=== PATIENT | female | born 1940 | race Caucasian/White ===

== ENCOUNTER 2017-09-13 15:29 | Outpatient (CLI) | payer OTHER ==
[~2017-09-13 15:29] MED LIST: AMLO5TAB4 PO; AMYL1CAP58 PO; ARA20 PO; CARB15DR76 OP; CEPH250C PO; FOLI-43 PO; GLU500 PO; L.RH1CAP PO; LEVO25TA58 PO; LEVO5TAB13 PO; METO-442 PO; MULT240L3 PO; OLME40TA13 PO; OMEP40CA33 PO; TRAM50TA92 PO; VITD2000 PO
[2017-09-13 18:17] LABS: BASOPHILS % (AUTO) 0.3 % (0.0-2.0); EOSINOPHILS # (AUTO) 0.2 K/uL (0.0-0.4); EOSINOPHILS % (AUTO) 2.6 % (0.0-4.0); HEMATOCRIT 27.9 % (36-48); HEMOGLOBIN 9.3 g/dL (12.0-16.0); MEAN CORPUSCULAR HEMOGLOBIN 31 pg (27-31); MEAN CORPUSCULAR HGB CONC 34 % (32-36); MEAN CORPUSCULAR VOLUME 92 fL (79.0-98.0); MONOCYTES # (AUTO) 1.1 K/uL (0.0-1.0); MONOCYTES % (AUTO) 17.2 % (1.7-9.3); NEUTROPHILS # (AUTO) 2.9 K/uL (1.8-7.7); NEUTROPHILS % (AUTO) 47.9 % (40.0-70.0); PLATELET COUNT (AUTO) 170 K/uL (130-430); RED BLOOD CELL COUNT(AUTO) 3.03 MIL/uL (4.2-6.2); RED CELL DISTRIBUTION WIDTH 15.9 % (9.0-15.0); WHITE BLOOD COUNT (AUTO) 6.2 K/uL (4.8-10.8)
[2017-09-13 18:50] LABS: ANION GAP 7 (5-15); CALCIUM 8.4 mg/dL (8.4-11.0); CHLORIDE 90 mmol/L (98-107); CREATININE 1.01 mg/dL (0.55-1.30); GLUCOSE 87 mg/dL (70-99); POTASSIUM 4.8 mmol/L (3.5-5.1); SODIUM SERUM 121 mmol/L (136-145); UREA NITROGEN, BLOOD 20 mg/dL (8-21)
[2017-09-13 18:57] LABS: BILIRUBIN,URINE NEGATIVE (NEGATIVE); BLOOD, URINE NEGATIVE (NEGATIVE); CLARITY/URINE CLEAR (CLEAR); COLOR,URINE YELLOW (YELLOW); GLUCOSE,URINE NEGATIVE (NEGATIVE); KETONES,URINE NEGATIVE (NEGATIVE); LEUKOCYTE ESTERASE ,URINE 1+ (NEGATIVE); NITRITE, URINE NEGATIVE (NEGATIVE); PH,URINE 6.5 (5.0-8.0); PROTEIN URINE NEGATIVE (NEGATIVE); UROBILINOGEN,URINE 0.2 (0.2-1.0)
[2017-09-13 19:06] LABS: ALANINE AMINOTRANSFERASE 28 U/L (12-78); ALBUMIN 2.8 g/dL (3.4-4.8); ASPARTATE AMINOTRANSFERASE 45 U/L (10-37); THYROID STIMULATING HORMONE 3.32 uIu/mL (0.34-4.82); TOTAL BILIRUBIN 0.7 mg/dL (0.0-1.0)
[2017-09-13 19:43] LABS: BACTERIA,URINE MODERATE /HPF (None Seen); RBC,URINE 0-3 /HPF (0-3)
[2017-09-13 19:44] LABS: MUCUS,URINE None Seen /LPF (None Seen)
== END 2017-09-13 20:51 | disposition home or self-care (01) ==
LOC: SLB 15:29
PROVIDERS: ATTEND Internal Medicine
DX: I11.0 Hypertensive heart disease with heart failure (principal); I50.9 Heart failure, unspecified; E11.9 Type 2 diabetes mellitus without complications; M06.9 Rheumatoid arthritis, unspecified; K21.9 Gastro-esophageal reflux disease without esophagitis; Z79.84 Long term (current) use of oral hypoglycemic drugs
CPT/HCPCS: 36415; 80053; 81000-TC; 83880; 84443-TC; 85025

== ENCOUNTER 2017-09-15 17:00 | Inpatient (IN) | payer OTHER ==
[~2017-09-15] VITALS: Ht 157.5 cm; Wt 80.8 kg
[2017-09-15 17:16] VITALS: BP_SYST 160
[2017-09-15 18:29] LABS: BASOPHILS % (AUTO) 0.5 % (0.0-2.0); EOSINOPHILS # (AUTO) 0.2 K/uL (0.0-0.4); EOSINOPHILS % (AUTO) 2.8 % (0.0-4.0); HEMOGLOBIN 9.5 g/dL (12.0-16.0); LYMPHOCYTES % (AUTO) 31.6 % (20.5-51.5); MEAN CORPUSCULAR HEMOGLOBIN 31 pg (27-31); MEAN CORPUSCULAR HGB CONC 34 % (32-36); MEAN CORPUSCULAR VOLUME 91 fL (79.0-98.0); MONOCYTES % (AUTO) 16.6 % (1.7-9.3); NEUTROPHILS # (AUTO) 3.1 K/uL (1.8-7.7); NEUTROPHILS % (AUTO) 48.5 % (40.0-70.0); PLATELET COUNT (AUTO) 176 K/uL (130-430); RED BLOOD CELL COUNT(AUTO) 3.07 MIL/uL (4.2-6.2); RED CELL DISTRIBUTION WIDTH 15.7 % (9.0-15.0); WHITE BLOOD COUNT (AUTO) 6.3 K/uL (4.8-10.8)
[2017-09-15 18:33] LABS: PROTHROMBIN TIME 10.3 SECS (9.5-12.5)
[2017-09-15 19:03] LABS: ANION GAP 10 (5-15); CALCIUM 8.5 mg/dL (8.4-11.0); CHLORIDE 89 mmol/L (98-107); CREATININE 1.18 mg/dL (0.55-1.30); GLUCOSE 102 mg/dL (70-99); POTASSIUM 4.2 mmol/L (3.5-5.1); SODIUM SERUM 122 mmol/L (136-145); UREA NITROGEN, BLOOD 22 mg/dL (8-21)
[2017-09-15 19:08] LABS: ALANINE AMINOTRANSFERASE 31 U/L (12-78); ASPARTATE AMINOTRANSFERASE 44 U/L (10-37); TOTAL BILIRUBIN 0.6 mg/dL (0.0-1.0)
[2017-09-15] MEDS ORDERED: INSU100V9 SUBCUT (19:55)
[2017-09-15] MEDS ORDERED: ASPI-1063 PO (19:55)
[2017-09-15] MEDS ORDERED: ESTA2TAB PO (19:55)
[2017-09-15] MEDS ORDERED: CORCR10 PO (19:55)
[2017-09-15] MEDS ORDERED: INSU100V8 SUBCUT (19:58)
[2017-09-15] MEDS ORDERED: DEXTROSE 50% JECT 50 ML DISP.SYRIN IVP PRN (20:30)
[2017-09-15] MEDS ORDERED: INSULIN REGULAR, HUMAN 100 UNITS/ML, 10 ML VIAL (novoLIN R) SUBCUT PRN (20:30)
[2017-09-15 20:40] VITALS: BP_SYST 158
[2017-09-15] MEDS: ENOXAPARIN SODIUM 40 MG/0.4 ML SYRINGE SUBCUT SCH (21:01)
[2017-09-15] MEDS: FUROSEMIDE 20 MG/2 ML VIAL IVP SCH (21:01)
[2017-09-15 22:38] LABS: BILIRUBIN,URINE NEGATIVE (NEGATIVE); BLOOD, URINE NEGATIVE (NEGATIVE); CLARITY/URINE CLEAR (CLEAR); COLOR,URINE YELLOW (YELLOW); GLUCOSE,URINE NEGATIVE (NEGATIVE); KETONES,URINE NEGATIVE (NEGATIVE); LEUKOCYTE ESTERASE ,URINE NEGATIVE (NEGATIVE); NITRITE, URINE NEGATIVE (NEGATIVE); PROTEIN URINE NEGATIVE (NEGATIVE); UROBILINOGEN,URINE 0.2 (0.2-1.0)
[2017-09-16 01:10] VITALS: BP_SYST 130; BP_SYST 144
[2017-09-16] MEDS: LEVOTHYROXINE SODIUM 0.025 MG TABLET PO SCH (06:10)
[2017-09-16 06:33] LABS: BASOPHILS % (AUTO) 0.3 % (0.0-2.0); EOSINOPHILS # (AUTO) 0.1 K/uL (0.0-0.4); EOSINOPHILS % (AUTO) 1.9 % (0.0-4.0); HEMATOCRIT 26.5 % (36-48); HEMOGLOBIN 9.1 g/dL (12.0-16.0); LYMPHOCYTES # (AUTO) 2.3 K/uL (1.0-5.5); LYMPHOCYTES % (AUTO) 33.9 % (20.5-51.5); MEAN CORPUSCULAR HEMOGLOBIN 31 pg (27-31); MEAN CORPUSCULAR HGB CONC 35 % (32-36); MEAN CORPUSCULAR VOLUME 91 fL (79.0-98.0); MONOCYTES % (AUTO) 14.7 % (1.7-9.3); NEUTROPHILS # (AUTO) 3.4 K/uL (1.8-7.7); NEUTROPHILS % (AUTO) 49.2 % (40.0-70.0); PLATELET COUNT (AUTO) 179 K/uL (130-430); RED BLOOD CELL COUNT(AUTO) 2.91 MIL/uL (4.2-6.2); RED CELL DISTRIBUTION WIDTH 15.9 % (9.0-15.0); WHITE BLOOD COUNT (AUTO) 6.8 K/uL (4.8-10.8)
[2017-09-16 07:18] LABS: ALANINE AMINOTRANSFERASE 28 U/L (12-78); ALBUMIN 2.7 g/dL (3.4-4.8); ANION GAP 8 (5-15); ASPARTATE AMINOTRANSFERASE 42 U/L (10-37); CALCIUM 8.7 mg/dL (8.4-11.0); CHLORIDE 95 mmol/L (98-107); FREE T4 (FREE THYROXINE) 0.6 ng/dL (0.6-1.6); GLUCOSE 79 mg/dL (70-99); POTASSIUM 4.1 mmol/L (3.5-5.1); SODIUM SERUM 129 mmol/L (136-145); THYROID STIMULATING HORMONE 3.99 uIu/mL (0.34-4.82); TOTAL BILIRUBIN 0.8 mg/dL (0.0-1.0); UREA NITROGEN, BLOOD 20 mg/dL (8-21)
[2017-09-16 07:21] LABS: TOTAL IRON BIND. CAPACITY 310 ug/dL (250-450)
[2017-09-16 08:00] VITALS: BP_SYST 143
[2017-09-16] MEDS: ASPIRIN 81 MG TABLET(ECOTRIN) PO SCH (09:40)
[2017-09-16] MEDS: CARVEDILOL 12.5 MG TABLET (COREG) PO SCH ×2 (09:40→18:11)
[2017-09-16] MEDS: FOLIC ACID 1 MG TABLET PO SCH (09:41)
[2017-09-16] MEDS: LIPASE/PROTEASE/AMYLASE 1 CAP PO SCH (09:41)
[2017-09-16] MEDS: FUROSEMIDE 20 MG/2 ML VIAL IVP SCH ×2 (09:42→21:25)
[2017-09-16 12:29] VITALS: BP_SYST 133
[2017-09-16 16:15] VITALS: BP_SYST 128
[2017-09-16 19:58] VITALS: BP_SYST 148
[2017-09-16] MEDS ORDERED: ZOLPIDEM TARTRATE 5 MG TABLET PO PRN (20:30)
[2017-09-16] MEDS: ENOXAPARIN SODIUM 40 MG/0.4 ML SYRINGE SUBCUT SCH (21:26)
[2017-09-17] MEDS: LEVOTHYROXINE SODIUM 0.025 MG TABLET PO SCH (06:39)
[2017-09-17 06:53] LABS: BASOPHILS # (AUTO) 0.1 K/uL (0.0-0.2); BASOPHILS % (AUTO) 1.2 % (0.0-2.0); EOSINOPHILS # (AUTO) 0.1 K/uL (0.0-0.4); EOSINOPHILS % (AUTO) 2.1 % (0.0-4.0); HEMATOCRIT 27.4 % (36-48); HEMOGLOBIN 9.7 g/dL (12.0-16.0); LYMPHOCYTES % (AUTO) 33.8 % (20.5-51.5); MEAN CORPUSCULAR HEMOGLOBIN 32 pg (27-31); MEAN CORPUSCULAR HGB CONC 35 % (32-36); MEAN CORPUSCULAR VOLUME 91 fL (79.0-98.0); MONOCYTES # (AUTO) 0.9 K/uL (0.0-1.0); MONOCYTES % (AUTO) 15.5 % (1.7-9.3); NEUTROPHILS # (AUTO) 2.7 K/uL (1.8-7.7); NEUTROPHILS % (AUTO) 47.4 % (40.0-70.0); PLATELET COUNT (AUTO) 172 K/uL (130-430); RED BLOOD CELL COUNT(AUTO) 3.02 MIL/uL (4.2-6.2); RED CELL DISTRIBUTION WIDTH 15.8 % (9.0-15.0); WHITE BLOOD COUNT (AUTO) 5.8 K/uL (4.8-10.8)
[2017-09-17 06:57] LABS: ANION GAP 7 (5-15); CALCIUM 8.6 mg/dL (8.4-11.0); CHLORIDE 98 mmol/L (98-107); CHOLESTEROL 140 mg/dL (<200); CREATININE 1.21 mg/dL (0.55-1.30); GLUCOSE 84 mg/dL (70-99); HDL CHOLESTEROL 75 mg/dL (>55); LDL CHOLESTEROL 60 mg/dL (<100); POTASSIUM 3.5 mmol/L (3.5-5.1); SODIUM SERUM 132 mmol/L (136-145); TRIGLYCERIDES 34 mg/dL (30-150); UREA NITROGEN, BLOOD 21 mg/dL (8-21)
[2017-09-17 08:00] VITALS: BP_SYST 148
[2017-09-17] MEDS ORDERED: ATORVASTATIN 20 MG TABLET PO SCH (09:00)
[2017-09-17] MEDS: LIPASE/PROTEASE/AMYLASE 1 CAP PO SCH (09:08)
[2017-09-17] MEDS: ASPIRIN 81 MG TABLET(ECOTRIN) PO SCH (09:08)
[2017-09-17] MEDS: FOLIC ACID 1 MG TABLET PO SCH (09:08)
[2017-09-17] MEDS: FUROSEMIDE 20 MG/2 ML VIAL IVP SCH (09:08)
[2017-09-17] MEDS: CARVEDILOL 12.5 MG TABLET (COREG) PO SCH ×2 (09:09→17:23)
[2017-09-17 10:29] LABS: RETICULOCYTE COUNT 2.7 % (0.5-1.5)
[2017-09-17 11:25] VITALS: BP_SYST 137
[2017-09-17 12:08] LABS: FOLATE (FOLIC ACID) >20.0 ng/mL (>3.0)
[2017-09-17 12:08] LABS: CANCER AG, 125 34.6 U/mL (0.0-38.1)
[2017-09-17 15:30] VITALS: BP_SYST 140
[2017-09-17 16:37] VITALS: BP_SYST 148
[2017-09-18] MEDS ORDERED: FUROSEMIDE 40 MG TABLET PO SCH (09:00)
== END 2017-09-17 17:50 | disposition home or self-care (01) | DRG 292 ==
LOC: SED 17:00 → STU 19:27
PROVIDERS: ADMIT Internal Medicine; ATTEND Internal Medicine
DX: I11.0 Hypertensive heart disease with heart failure (principal); E87.1 Hypo-osmolality and hyponatremia; I50.31 Acute diastolic (congestive) heart failure; M06.9 Rheumatoid arthritis, unspecified; E11.9 Type 2 diabetes mellitus without complications; E03.9 Hypothyroidism, unspecified; D64.9 Anemia, unspecified; E87.8 Other disorders of electrolyte and fluid balance, not elsewhere classified; K21.9 Gastro-esophageal reflux disease without esophagitis; K80.20 Calculus of gallbladder without cholecystitis without obstruction; N20.0 Calculus of kidney; E66.9 Obesity, unspecified; Z68.32 Body mass index [BMI] 32.0-32.9, adult; Z87.442 Personal history of urinary calculi; Z85.43 Personal history of malignant neoplasm of ovary; Z79.899 Other long term (current) drug therapy; Z79.84 Long term (current) use of oral hypoglycemic drugs; Z90.710 Acquired absence of both cervix and uterus; Z79.82 Long term (current) use of aspirin
CPT/HCPCS: 36415; 71045; 80048; 80053; 80061; 81003; 82272; 82378; 82607; 82728; 82746; 82962; 83540-TC; 83550-TC; 83880; 84302-TC; 84439; 84443-TC; 84484; 85025; 85044-TC; 85610-TC; 85730-TC; 86301; 86304; 93005; 93306; 93970; 97116-GP; 97530-GP; 99285; J1650; J1940

== ENCOUNTER 2017-09-26 14:12 | Outpatient (CLI) | payer OTHER ==
[~2017-09-26 14:12] MED LIST changes: -AMLO5TAB4 PO; -ARA20 PO; +ASPI-1063 PO; -CARB15DR76 OP; -CEPH250C PO; +CORCR10 PO; -GLU500 PO; -L.RH1CAP PO; -LEVO5TAB13 PO; -METO-442 PO; -MULT240L3 PO; -OLME40TA13 PO; -OMEP40CA33 PO; -TRAM50TA92 PO; -VITD2000 PO
[2017-09-26 14:49] LABS: BASOPHILS # (AUTO) 0.1 K/uL (0.0-0.2); BASOPHILS % (AUTO) 0.8 % (0.0-2.0); EOSINOPHILS # (AUTO) 0.1 K/uL (0.0-0.4); EOSINOPHILS % (AUTO) 2.2 % (0.0-4.0); HEMATOCRIT 32.8 % (36-48); HEMOGLOBIN 10.9 g/dL (12.0-16.0); LYMPHOCYTES # (AUTO) 2.6 K/uL (1.0-5.5); LYMPHOCYTES % (AUTO) 38.8 % (20.5-51.5); MEAN CORPUSCULAR HEMOGLOBIN 30 pg (27-31); MEAN CORPUSCULAR HGB CONC 33 % (32-36); MEAN CORPUSCULAR VOLUME 91 fL (79.0-98.0); MONOCYTES # (AUTO) 0.9 K/uL (0.0-1.0); MONOCYTES % (AUTO) 14.1 % (1.7-9.3); NEUTROPHILS % (AUTO) 44.1 % (40.0-70.0); PLATELET COUNT (AUTO) 227 K/uL (130-430); RED BLOOD CELL COUNT(AUTO) 3.59 MIL/uL (4.2-6.2); RED CELL DISTRIBUTION WIDTH 15.8 % (9.0-15.0); WHITE BLOOD COUNT (AUTO) 6.7 K/uL (4.8-10.8)
[2017-09-26 14:52] LABS: ANION GAP 9 (5-15); CALCIUM 9.1 mg/dL (8.4-11.0); CHLORIDE 95 mmol/L (98-107); CREATININE 1.34 mg/dL (0.55-1.30); GLUCOSE 151 mg/dL (70-99); POTASSIUM 4.7 mmol/L (3.5-5.1); SODIUM SERUM 130 mmol/L (136-145); UREA NITROGEN, BLOOD 31 mg/dL (8-21)
== END 2017-09-26 18:53 | disposition home or self-care (01) ==
LOC: SLB 14:12
PROVIDERS: ATTEND Internal Medicine
DX: D64.9 Anemia, unspecified (principal); I11.0 Hypertensive heart disease with heart failure; I50.9 Heart failure, unspecified; E03.9 Hypothyroidism, unspecified; M06.9 Rheumatoid arthritis, unspecified
CPT/HCPCS: 36415; 80048; 83880; 85025

== ENCOUNTER 2017-10-01 20:13 | Emergency (ER) | payer OTHER ==
[~2017-10-01] VITALS: Ht 157.5 cm; Wt 77.1 kg
[2017-10-01 20:19] VITALS: BP_SYST 184
[2017-10-01 20:45] VITALS: BP_SYST 160
== END 2017-10-01 20:45 | disposition home or self-care (01) ==
LOC: SED 20:13
DX: E11.65 Type 2 diabetes mellitus with hyperglycemia (principal); K21.9 Gastro-esophageal reflux disease without esophagitis; I10 Essential (primary) hypertension; E03.9 Hypothyroidism, unspecified; Z90.710 Acquired absence of both cervix and uterus
CPT/HCPCS: 99281; 99282

== ENCOUNTER 2017-12-15 09:10 | Outpatient (CLI) | payer OTHER ==
[~2017-12-15 09:10] MED LIST changes: -ASPI-1063 PO; +ASPI-1153 PO; +LEVO25TA2 PO; -LEVO25TA58 PO
[2017-12-15 10:31] LABS: ANION GAP 5 (5-15); CALCIUM 9.5 mg/dL (8.4-11.0); CHLORIDE 100 mmol/L (98-107); CREATININE 1.29 mg/dL (0.55-1.30); GLUCOSE 125 mg/dL (70-99); SODIUM SERUM 133 mmol/L (136-145); UREA NITROGEN, BLOOD 31 mg/dL (8-21)
[2017-12-15 10:47] LABS: BASOPHILS % (AUTO) 0.5 % (0.0-2.0); EOSINOPHILS # (AUTO) 0.2 K/uL (0.0-0.4); EOSINOPHILS % (AUTO) 3.5 % (0.0-4.0); HEMATOCRIT 38.1 % (36-48); HEMOGLOBIN 12.5 g/dL (12.0-16.0); LYMPHOCYTES # (AUTO) 2.2 K/uL (1.0-5.5); LYMPHOCYTES % (AUTO) 39.6 % (20.5-51.5); MEAN CORPUSCULAR HEMOGLOBIN 30 pg (27-31); MEAN CORPUSCULAR HGB CONC 33 % (32-36); MEAN CORPUSCULAR VOLUME 91 fL (79.0-98.0); MONOCYTES # (AUTO) 0.7 K/uL (0.0-1.0); MONOCYTES % (AUTO) 11.6 % (1.7-9.3); NEUTROPHILS # (AUTO) 2.5 K/uL (1.8-7.7); NEUTROPHILS % (AUTO) 44.8 % (40.0-70.0); PLATELET COUNT (AUTO) 181 K/uL (130-430); RED BLOOD CELL COUNT(AUTO) 4.17 MIL/uL (4.2-6.2); RED CELL DISTRIBUTION WIDTH 15.6 % (9.0-15.0); WHITE BLOOD COUNT (AUTO) 5.6 K/uL (4.8-10.8)
[2017-12-15 11:37] LABS: BILIRUBIN,URINE NEGATIVE (NEGATIVE); BLOOD, URINE NEGATIVE (NEGATIVE); CLARITY/URINE CLEAR (CLEAR); COLOR,URINE YELLOW (YELLOW); GLUCOSE,URINE NEGATIVE (NEGATIVE); KETONES,URINE NEGATIVE (NEGATIVE); LEUKOCYTE ESTERASE ,URINE 1+ (NEGATIVE); NITRITE, URINE NEGATIVE (NEGATIVE); PH,URINE 5.5 (5.0-8.0); PROTEIN URINE NEGATIVE (NEGATIVE); UROBILINOGEN,URINE 0.2 (0.2-1.0)
[2017-12-15 12:13] LABS: BACTERIA,URINE FEW /HPF (None Seen); RBC,URINE 0-3 /HPF (0-3)
[2017-12-15 12:14] LABS: MUCUS,URINE 1+ /LPF (None Seen)
[2017-12-15 19:49] LABS: CHOLESTEROL 126 mg/dL (<200); HDL CHOLESTEROL 67 mg/dL (>55); LDL CHOLESTEROL 56 mg/dL (<100); THYROID STIMULATING HORMONE 4.86 uIu/mL (0.36-3.74); TRIGLYCERIDES 43 mg/dL (30-150)
[2017-12-16 12:37] LABS: HEMOGLOBIN A1C 7.6 % (4.8-5.6)
[2017-12-16 15:15] LABS: CREATININE, URINE 81.9 mg/dL; MICROALBUMIN URINE RANDOM 30.3 ug/ml (NOT ESTABLISHED)
== END 2017-12-15 21:37 | disposition home or self-care (01) ==
LOC: SLB 09:10
PROVIDERS: ATTEND Internal Medicine
DX: I10 Essential (primary) hypertension (principal); E78.5 Hyperlipidemia, unspecified; E11.65 Type 2 diabetes mellitus with hyperglycemia; E03.9 Hypothyroidism, unspecified; M06.9 Rheumatoid arthritis, unspecified; Z79.899 Other long term (current) drug therapy
CPT/HCPCS: 36415; 80048; 80061; 81000-TC; 82043; 82306; 82570; 83036; 84443-TC; 85025; 87086

== ENCOUNTER 2018-04-19 08:50 | Outpatient (CLI) | payer OTHER ==
[2018-04-19 09:29] LABS: BILIRUBIN,URINE NEGATIVE (NEGATIVE); BLOOD, URINE NEGATIVE (NEGATIVE); CLARITY/URINE CLEAR (CLEAR); COLOR,URINE YELLOW (YELLOW); GLUCOSE,URINE NEGATIVE (NEGATIVE); KETONES,URINE NEGATIVE (NEGATIVE); LEUKOCYTE ESTERASE ,URINE NEGATIVE (NEGATIVE); NITRITE, URINE NEGATIVE (NEGATIVE); PH,URINE 5.5 (5.0-8.0); PROTEIN URINE NEGATIVE (NEGATIVE); UROBILINOGEN,URINE 0.2 (0.2-1.0)
[2018-04-19 09:55] LABS: BASOPHILS % (AUTO) 0.3 % (0.0-2.0); EOSINOPHILS # (AUTO) 0.2 K/uL (0.0-0.4); EOSINOPHILS % (AUTO) 4.5 % (0.0-4.0); HEMATOCRIT 38.7 % (36-48); HEMOGLOBIN 12.8 g/dL (12.0-16.0); LYMPHOCYTES # (AUTO) 2.3 K/uL (1.0-5.5); LYMPHOCYTES % (AUTO) 42.2 % (20.5-51.5); MEAN CORPUSCULAR HEMOGLOBIN 31 pg (27-31); MEAN CORPUSCULAR HGB CONC 33 % (32-36); MEAN CORPUSCULAR VOLUME 92 fL (79.0-98.0); MONOCYTES # (AUTO) 0.7 K/uL (0.0-1.0); MONOCYTES % (AUTO) 13.3 % (1.7-9.3); NEUTROPHILS # (AUTO) 2.1 K/uL (1.8-7.7); NEUTROPHILS % (AUTO) 39.7 % (40.0-70.0); PLATELET COUNT (AUTO) 182 K/uL (130-430); RED BLOOD CELL COUNT(AUTO) 4.18 MIL/uL (4.2-6.2); RED CELL DISTRIBUTION WIDTH 13.6 % (9.0-15.0); WHITE BLOOD COUNT (AUTO) 5.3 K/uL (4.8-10.8)
[2018-04-19 10:05] LABS: ALANINE AMINOTRANSFERASE 36 U/L (12-78); ALBUMIN 2.8 g/dL (3.4-4.8); ANION GAP 7 (5-15); ASPARTATE AMINOTRANSFERASE 43 U/L (10-37); CHLORIDE 101 mmol/L (98-107); CHOLESTEROL 108 mg/dL (<200); CREATININE 1.24 mg/dL (0.55-1.30); GLUCOSE 120 mg/dL (70-99); HDL CHOLESTEROL 56 mg/dL (>55); LDL CHOLESTEROL 49 mg/dL (<100); POTASSIUM 4.4 mmol/L (3.5-5.1); SODIUM SERUM 135 mmol/L (136-145); THYROID STIMULATING HORMONE 1.42 uIu/mL (0.34-4.82); TOTAL BILIRUBIN 0.8 mg/dL (0.0-1.0); TRIGLYCERIDES 45 mg/dL (30-150); UREA NITROGEN, BLOOD 28 mg/dL (8-21)
[2018-04-20 14:21] LABS: CREATININE, URINE 71.8 mg/dL; MICROALBUMIN URINE RANDOM 25.1 ug/ml (NOT ESTABLISHED); MICROALBUMIN/CREAT RATIO, UR 35.0 High MG/G CRE (0.0-30.0)
== END 2018-04-19 19:18 | disposition home or self-care (01) ==
LOC: SLB 08:50
PROVIDERS: ATTEND Internal Medicine
DX: I10 Essential (primary) hypertension (principal); E78.5 Hyperlipidemia, unspecified; E11.65 Type 2 diabetes mellitus with hyperglycemia; E03.9 Hypothyroidism, unspecified; E66.9 Obesity, unspecified
CPT/HCPCS: 36415; 80053; 80061; 81003; 82043; 82570; 83036; 84443-TC; 85025

== ENCOUNTER 2018-09-12 08:18 | Outpatient (CLI) | payer OTHER ==
[2018-09-12 09:26] LABS: BASOPHILS # (AUTO) 0.1 K/uL (0.0-0.2); BASOPHILS % (AUTO) 1.2 % (0.0-2.0); EOSINOPHILS # (AUTO) 0.4 K/uL (0.0-0.4); EOSINOPHILS % (AUTO) 5.7 % (0.0-4.0); HEMATOCRIT 41.5 % (36-48); HEMOGLOBIN 14.1 g/dL (12.0-16.0); LYMPHOCYTES # (AUTO) 2.5 K/uL (1.0-5.5); LYMPHOCYTES % (AUTO) 38.9 % (20.5-51.5); MEAN CORPUSCULAR HEMOGLOBIN 33 pg (27-31); MEAN CORPUSCULAR HGB CONC 34 % (32-36); MEAN CORPUSCULAR VOLUME 96 fL (79.0-98.0); MONOCYTES # (AUTO) 0.7 K/uL (0.0-1.0); NEUTROPHILS # (AUTO) 2.8 K/uL (1.8-7.7); NEUTROPHILS % (AUTO) 43.2 % (40.0-70.0); PLATELET COUNT (AUTO) 152 K/uL (130-430); RED BLOOD CELL COUNT(AUTO) 4.33 MIL/uL (4.2-6.2); RED CELL DISTRIBUTION WIDTH 13.8 % (9.0-15.0); WHITE BLOOD COUNT (AUTO) 6.5 K/uL (4.8-10.8)
[2018-09-12 09:59] LABS: BILIRUBIN,URINE NEGATIVE (NEGATIVE); BLOOD, URINE NEGATIVE (NEGATIVE); CLARITY/URINE CLEAR (CLEAR); COLOR,URINE YELLOW (YELLOW); GLUCOSE,URINE NEGATIVE (NEGATIVE); KETONES,URINE NEGATIVE (NEGATIVE); LEUKOCYTE ESTERASE ,URINE 1+ (NEGATIVE); NITRITE, URINE NEGATIVE (NEGATIVE); PROTEIN URINE NEGATIVE (NEGATIVE); UROBILINOGEN,URINE 0.2 (0.2-1.0)
[2018-09-12 10:00] LABS: ANION GAP 6 (5-15); CALCIUM 9.4 mg/dL (8.4-11.0); CHLORIDE 102 mmol/L (98-107); CREATININE 1.16 mg/dL (0.55-1.30); GLUCOSE 102 mg/dL (70-99); POTASSIUM 4.8 mmol/L (3.5-5.1); SODIUM SERUM 134 mmol/L (136-145); UREA NITROGEN, BLOOD 27 mg/dL (8-21)
[2018-09-12 10:12] LABS: BACTERIA,URINE FEW /HPF (None Seen); RBC,URINE 0-3 /HPF (0-3)
[2018-09-12 10:13] LABS: MUCUS,URINE None Seen /LPF (None Seen)
[2018-09-12 10:15] LABS: ALANINE AMINOTRANSFERASE 42 U/L (12-78); ALBUMIN 3.2 g/dL (3.4-4.8); ASPARTATE AMINOTRANSFERASE 44 U/L (10-37); CHOLESTEROL 123 mg/dL (<200); HDL CHOLESTEROL 63 mg/dL (>55); LDL CHOLESTEROL 51 mg/dL (<100); THYROID STIMULATING HORMONE 7.19 uIu/mL (0.34-4.82); TOTAL BILIRUBIN 0.9 mg/dL (0.0-1.0); TRIGLYCERIDES 57 mg/dL (30-150)
[2018-09-15 09:59] LABS: HEMOGLOBIN A1C 8.5 % (4.8-5.6)
== END 2018-09-12 20:51 | disposition home or self-care (01) ==
LOC: SLB 08:18
PROVIDERS: ATTEND Internal Medicine
DX: I11.0 Hypertensive heart disease with heart failure (principal); I50.9 Heart failure, unspecified; E78.5 Hyperlipidemia, unspecified; E11.65 Type 2 diabetes mellitus with hyperglycemia; E56.9 Vitamin deficiency, unspecified; E03.9 Hypothyroidism, unspecified; Z79.899 Other long term (current) drug therapy
CPT/HCPCS: 36415; 80053; 80061; 81000-TC; 82306; 82607; 83036; 84443-TC; 85025; 87086

== ENCOUNTER 2018-12-13 08:43 | Outpatient (CLI) | payer OTHER | END 2018-12-13 20:47 | disposition home or self-care (01) | LOC: SLB 08:43 | PROVIDERS: ATTEND Internal Medicine | DX: E03.9 Hypothyroidism, unspecified (principal) | CPT/HCPCS: 36415; 84443-TC ==

== ENCOUNTER 2019-01-13 17:34 | Emergency (ER) | payer OTHER ==
[~2019-01-13] VITALS: Ht 167.6 cm; Wt 79.4 kg
[2019-01-13 17:58] VITALS: BP_SYST 162
--- NOTE | 2019-01-13 17:58 | NUR ---
Placed in room 5 . Placed on ekg monitor, blood pressure machine and pulse oximeter. To gown for exam. Side rails up. Assumed care.
--- NOTE | 2019-01-13 18:18 | NUR ---
Patient arrived via POV with family. Patient AAOx4, and ambulatory with steady gait. Patient c/c of swelling to extremities. Swelling present to bilateral ankles/feet, as well as bilateral hands. Patient states she had periods of orthopnea yesterday. Patient states she had chest pain on , but it was resolved with vicks vaporub. Patient denies recent illness, no cough, fever, chills, SOB, CP, Nausea, vomiting, or diarrhea. Patient states no history of kidney problems. Patient states when she followed up with her doctor, he changed her blood pressure medication from carvedilol to amlodipine, that is the onset of swelling. Patient states no pain. Will continue to follow up and monitor.
--- NOTE | 2019-01-13 18:20 | NUR ---
ER at bedside examining patient.
[2019-01-13] MEDS ORDERED: GLIM4TAB2 PO (18:46)
[2019-01-13] MEDS ORDERED: FURO-150 PO (18:46)
[2019-01-13] MEDS ORDERED: LEVO75TA7 PO (18:46)
[2019-01-13] MEDS ORDERED: AMLO10TA88 PO (18:46)
--- NOTE | 2019-01-13 18:46 | NUR ---
Medication reconciliation completed with information provided by pill bottles brought in by patient. Any prior medication reconciliation on file was reviewed and corrected.
[2019-01-13 18:59] LABS: BASOPHILS % (AUTO) 0.6 % (0.0-2.0); EOSINOPHILS # (AUTO) 0.2 K/uL (0.0-0.4); EOSINOPHILS % (AUTO) 3.3 % (0.0-4.0); HEMATOCRIT 35.4 % (36-48); LYMPHOCYTES # (AUTO) 2.2 K/uL (1.0-5.5); LYMPHOCYTES % (AUTO) 35.6 % (20.5-51.5); MEAN CORPUSCULAR HEMOGLOBIN 33 pg (27-31); MEAN CORPUSCULAR HGB CONC 34 % (32-36); MEAN CORPUSCULAR VOLUME 97 fL (79.0-98.0); MONOCYTES % (AUTO) 16.6 % (1.7-9.3); NEUTROPHILS # (AUTO) 2.7 K/uL (1.8-7.7); NEUTROPHILS % (AUTO) 43.9 % (40.0-70.0); PLATELET COUNT (AUTO) 132 K/uL (130-430); RED BLOOD CELL COUNT(AUTO) 3.64 MIL/uL (4.2-6.2); RED CELL DISTRIBUTION WIDTH 13.4 % (9.0-15.0); WHITE BLOOD COUNT (AUTO) 6.2 K/uL (4.8-10.8)
[2019-01-13 19:08] LABS: ANION GAP 5 (5-15); CALCIUM 8.6 mg/dL (8.4-11.0); CHLORIDE 99 mmol/L (98-107); CREATININE 1.28 mg/dL (0.55-1.30); GLUCOSE 207 mg/dL (70-99); POTASSIUM 4.7 mmol/L (3.5-5.1); SODIUM SERUM 131 mmol/L (136-145); UREA NITROGEN, BLOOD 27 mg/dL (8-21)
[2019-01-13 19:14] LABS: ALANINE AMINOTRANSFERASE 41 U/L (12-78); ALBUMIN 2.8 g/dL (3.4-4.8); ASPARTATE AMINOTRANSFERASE 53 U/L (10-37); TOTAL BILIRUBIN 0.7 mg/dL (0.0-1.0)
[2019-01-13 19:20] VITALS: BP_SYST 155
--- NOTE | 2019-01-13 19:20 | NUR ---
Patient given written and verbal discharge instructions and verbalizes understanding. ER MD discussed with patient the results and treatment provided. Patient in stable condition. ID arm band removed. No Rx given. Patient educated on pain management and to follow up with PMD. Pain Scale 0. Opportunity for questions provided and answered. Medication side effect fact sheet provided.
== END 2019-01-13 19:20 | disposition home or self-care (01) ==
LOC: SED 17:34
DX: R60.1 Generalized edema (principal); E11.9 Type 2 diabetes mellitus without complications; I10 Essential (primary) hypertension; E03.9 Hypothyroidism, unspecified; K21.9 Gastro-esophageal reflux disease without esophagitis; Z79.82 Long term (current) use of aspirin; Z79.899 Other long term (current) drug therapy
CPT/HCPCS: 36415; 80053; 83880; 85025; 99283

== ENCOUNTER 2019-05-09 08:29 | Outpatient (CLI) | payer OTHER ==
[~2019-05-09 08:29] MED LIST changes: +AMLO10TA88 PO; -CORCR10 PO; +FURO-150 PO; +GLIM4TAB2 PO; -LEVO25TA2 PO; +LEVO75TA7 PO
[2019-05-09 09:19] LABS: BASOPHILS % (AUTO) 0.6 % (0.0-2.0); EOSINOPHILS # (AUTO) 0.2 K/uL (0.0-0.4); EOSINOPHILS % (AUTO) 5.2 % (0.0-4.0); HEMATOCRIT 40.8 % (36-48); HEMOGLOBIN 13.8 g/dL (12.0-16.0); LYMPHOCYTES # (AUTO) 1.9 K/uL (1.0-5.5); LYMPHOCYTES % (AUTO) 40.4 % (20.5-51.5); MEAN CORPUSCULAR HEMOGLOBIN 33 pg (27-31); MEAN CORPUSCULAR HGB CONC 34 % (32-36); MEAN CORPUSCULAR VOLUME 96 fL (79.0-98.0); MONOCYTES # (AUTO) 0.6 K/uL (0.0-1.0); MONOCYTES % (AUTO) 12.4 % (1.7-9.3); NEUTROPHILS # (AUTO) 1.9 K/uL (1.8-7.7); NEUTROPHILS % (AUTO) 41.4 % (40.0-70.0); PLATELET COUNT (AUTO) 133 K/uL (130-430); RED BLOOD CELL COUNT(AUTO) 4.23 MIL/uL (4.2-6.2); RED CELL DISTRIBUTION WIDTH 12.9 % (9.0-15.0); WHITE BLOOD COUNT (AUTO) 4.6 K/uL (4.8-10.8)
[2019-05-09 09:40] LABS: ALANINE AMINOTRANSFERASE 37 U/L (12-78); ANION GAP 4 (5-15); ASPARTATE AMINOTRANSFERASE 40 U/L (10-37); CALCIUM 9.2 mg/dL (8.4-11.0); CHLORIDE 101 mmol/L (98-107); CHOLESTEROL 127 mg/dL (<200); CREATININE 1.21 mg/dL (0.55-1.30); GLUCOSE 151 mg/dL (70-99); HDL CHOLESTEROL 67 mg/dL (>55); LDL CHOLESTEROL 45 mg/dL (<100); POTASSIUM 4.5 mmol/L (3.5-5.1); SODIUM SERUM 132 mmol/L (136-145); TRIGLYCERIDES 51 mg/dL (30-150); UREA NITROGEN, BLOOD 27 mg/dL (8-21)
[2019-05-09 09:41] LABS: BILIRUBIN,URINE NEGATIVE (NEGATIVE); CLARITY/URINE CLEAR (CLEAR); COLOR,URINE YELLOW (YELLOW); GLUCOSE,URINE NEGATIVE (NEGATIVE); KETONES,URINE NEGATIVE (NEGATIVE); LEUKOCYTE ESTERASE ,URINE TRACE (NEGATIVE); NITRITE, URINE NEGATIVE (NEGATIVE); PROTEIN URINE TRACE (NEGATIVE); UROBILINOGEN,URINE 0.2 (0.2-1.0)
[2019-05-09 09:54] LABS: BLOOD, URINE TRACE (NEGATIVE)
[2019-05-09 09:58] LABS: BACTERIA,URINE FEW /HPF (None Seen)
[2019-05-09 10:12] LABS: THYROID STIMULATING HORMONE 1.15 uIu/mL (0.34-4.82)
[2019-05-10 08:37] LABS: HEMOGLOBIN A1C 9.4 % (4.8-5.6)
== END 2019-05-09 20:58 | disposition home or self-care (01) ==
LOC: SLB 08:29
PROVIDERS: ATTEND Internal Medicine
DX: I10 Essential (primary) hypertension (principal); E78.5 Hyperlipidemia, unspecified; E03.9 Hypothyroidism, unspecified; E55.9 Vitamin D deficiency, unspecified; E66.09 Other obesity due to excess calories; E11.9 Type 2 diabetes mellitus without complications
CPT/HCPCS: 36415; 80053; 80061; 81000-TC; 82306; 82607; 83036; 84443-TC; 85025

== ENCOUNTER 2019-08-05 01:06 | Emergency (ER) | payer OTHER ==
[~2019-08-05] VITALS: Ht 157.5 cm; Wt 81.6 kg
[2019-08-05 01:35] VITALS: BP_SYST 215
--- NOTE | 2019-08-05 02:20 | NUR ---
Patient to ER bed Hallway to gown for evaluation. Side rails up
--- NOTE | 2019-08-05 02:50 | NUR ---
Pt signed AMA w/o being seen
== END 2019-08-05 02:53 | disposition left against medical advice (07) ==
LOC: SED 01:06
DX: R10.13 Epigastric pain (principal); Z53.21 Procedure and treatment not carried out due to patient leaving prior to being seen by health care provider

== ENCOUNTER 2019-10-02 08:21 | Outpatient (CLI) | payer OTHER ==
[2019-10-02 10:02] LABS: BASOPHILS % (AUTO) 0.5 % (0.0-2.0); EOSINOPHILS # (AUTO) 0.3 K/uL (0.0-0.4); EOSINOPHILS % (AUTO) 4.9 % (0.0-4.0); HEMATOCRIT 40.8 % (36-48); HEMOGLOBIN 13.8 g/dL (12.0-16.0); LYMPHOCYTES # (AUTO) 2.1 K/uL (1.0-5.5); LYMPHOCYTES % (AUTO) 39.6 % (20.5-51.5); MEAN CORPUSCULAR HEMOGLOBIN 33 pg (27-31); MEAN CORPUSCULAR HGB CONC 34 % (32-36); MEAN CORPUSCULAR VOLUME 97 fL (79.0-98.0); MONOCYTES # (AUTO) 0.6 K/uL (0.0-1.0); MONOCYTES % (AUTO) 11.9 % (1.7-9.3); NEUTROPHILS # (AUTO) 2.2 K/uL (1.8-7.7); NEUTROPHILS % (AUTO) 43.1 % (40.0-70.0); PLATELET COUNT (AUTO) 141 K/uL (130-430); RED CELL DISTRIBUTION WIDTH 13.3 % (9.0-15.0); WHITE BLOOD COUNT (AUTO) 5.2 K/uL (4.8-10.8)
[2019-10-02 10:03] LABS: BILIRUBIN,URINE NEGATIVE (NEGATIVE); BLOOD, URINE NEGATIVE (NEGATIVE); CLARITY/URINE CLEAR (CLEAR); COLOR,URINE YELLOW (YELLOW); GLUCOSE,URINE NEGATIVE (NEGATIVE); KETONES,URINE NEGATIVE (NEGATIVE); LEUKOCYTE ESTERASE ,URINE NEGATIVE (NEGATIVE); NITRITE, URINE NEGATIVE (NEGATIVE); PROTEIN URINE NEGATIVE (NEGATIVE); UROBILINOGEN,URINE 0.2 (0.2-1.0)
[2019-10-02 10:25] LABS: ALANINE AMINOTRANSFERASE 39 U/L (12-78); ALBUMIN 2.8 g/dL (3.4-4.8); ANION GAP 9 (5-15); ASPARTATE AMINOTRANSFERASE 41 U/L (10-37); CHLORIDE 99 mmol/L (98-107); CHOLESTEROL 109 mg/dL (<200); CREATININE 1.23 mg/dL (0.55-1.30); GLUCOSE 143 mg/dL (70-99); HDL CHOLESTEROL 64 mg/dL (>55); LDL CHOLESTEROL 45 mg/dL (<100); POTASSIUM 4.3 mmol/L (3.5-5.1); SODIUM SERUM 134 mmol/L (136-145); THYROID STIMULATING HORMONE 0.79 uIu/mL (0.34-4.82); TRIGLYCERIDES 37 mg/dL (30-150); UREA NITROGEN, BLOOD 31 mg/dL (8-21)
== END 2019-10-02 21:02 | disposition home or self-care (01) ==
LOC: SLB 08:21
PROVIDERS: ATTEND Internal Medicine
DX: E11.65 Type 2 diabetes mellitus with hyperglycemia (principal); I10 Essential (primary) hypertension; E78.5 Hyperlipidemia, unspecified; E03.9 Hypothyroidism, unspecified; E55.9 Vitamin D deficiency, unspecified; N39.0 Urinary tract infection, site not specified
CPT/HCPCS: 36415; 80053; 80061; 81003; 82306; 82607; 83036; 84443-TC; 85025; 87086

== ENCOUNTER 2020-01-30 09:01 | Outpatient (CLI) | payer OTHER ==
[~2020-01-30 09:01] MED LIST changes: -ASPI-1153 PO; +ASPI-1393 PO; -GLIM4TAB2 PO; +GLIM4TAB37 PO
[2020-01-30 09:36] LABS: BASOPHILS % (AUTO) 0.3 % (0.0-2.0); EOSINOPHILS # (AUTO) 0.2 K/uL (0.0-0.4); EOSINOPHILS % (AUTO) 4.5 % (0.0-4.0); HEMATOCRIT 39.8 % (36-48); HEMOGLOBIN 13.8 g/dL (12.0-16.0); LYMPHOCYTES # (AUTO) 2.2 K/uL (1.0-5.5); LYMPHOCYTES % (AUTO) 40.2 % (20.5-51.5); MEAN CORPUSCULAR HEMOGLOBIN 34 pg (27-31); MEAN CORPUSCULAR HGB CONC 35 % (32-36); MEAN CORPUSCULAR VOLUME 97 fL (79.0-98.0); MONOCYTES # (AUTO) 0.7 K/uL (0.0-1.0); MONOCYTES % (AUTO) 12.9 % (1.7-9.3); NEUTROPHILS # (AUTO) 2.3 K/uL (1.8-7.7); NEUTROPHILS % (AUTO) 42.1 % (40.0-70.0); PLATELET COUNT (AUTO) 140 K/uL (130-430); RED BLOOD CELL COUNT(AUTO) 4.09 MIL/uL (4.2-6.2); RED CELL DISTRIBUTION WIDTH 12.9 % (9.0-15.0); WHITE BLOOD COUNT (AUTO) 5.5 K/uL (4.8-10.8)
[2020-01-30 09:39] LABS: BILIRUBIN,URINE NEGATIVE (NEGATIVE); CLARITY/URINE CLEAR (CLEAR); COLOR,URINE YELLOW (YELLOW); GLUCOSE,URINE NEGATIVE (NEGATIVE); KETONES,URINE NEGATIVE (NEGATIVE); LEUKOCYTE ESTERASE ,URINE TRACE (NEGATIVE); NITRITE, URINE NEGATIVE (NEGATIVE); PROTEIN URINE 1+ (NEGATIVE); UROBILINOGEN,URINE 0.2 (0.2-1.0)
[2020-01-30 09:40] LABS: BLOOD, URINE TRACE (NEGATIVE)
[2020-01-30 09:53] LABS: BACTERIA,URINE FEW /HPF (None Seen)
[2020-01-30 10:08] LABS: ALANINE AMINOTRANSFERASE 40 U/L (12-78); ALBUMIN 3.1 g/dL (3.4-4.8); ANION GAP 8 (5-15); ASPARTATE AMINOTRANSFERASE 47 U/L (10-37); CALCIUM 8.4 mg/dL (8.4-11.0); CHLORIDE 99 mmol/L (98-107); CREATININE 1.09 mg/dL (0.55-1.30); GLUCOSE 125 mg/dL (70-99); POTASSIUM 4.1 mmol/L (3.5-5.1); SODIUM SERUM 135 mmol/L (136-145); THYROID STIMULATING HORMONE 1.64 uIu/mL (0.36-3.74); TOTAL BILIRUBIN 1.1 mg/dL (0.0-1.0); UREA NITROGEN, BLOOD 26 mg/dL (8-21)
[2020-01-30 10:26] LABS: CHOLESTEROL 118 mg/dL (<200); HDL CHOLESTEROL 68 mg/dL (>55); LDL CHOLESTEROL 46 mg/dL (<100); TRIGLYCERIDES 32 mg/dL (30-150)
[2020-01-31 11:14] LABS: HEMOGLOBIN A1C 8.7 % (4.8-5.6)
== END 2020-02-01 15:13 | disposition home or self-care (01) ==
LOC: SLB 09:01
PROVIDERS: ATTEND Internal Medicine
DX: I10 Essential (primary) hypertension (principal); E11.65 Type 2 diabetes mellitus with hyperglycemia; E66.09 Other obesity due to excess calories; E03.9 Hypothyroidism, unspecified; E56.9 Vitamin deficiency, unspecified; E78.5 Hyperlipidemia, unspecified
CPT/HCPCS: 36415; 80053; 80061; 81000-TC; 82607; 83036; 84443-TC; 85025

== ENCOUNTER 2020-04-28 16:14 | Outpatient (CLI) | payer OTHER ==
[2020-04-28 19:00] LABS: BASOPHILS % (AUTO) 0.6 % (0.0-2.0); EOSINOPHILS # (AUTO) 0.2 K/uL (0.0-0.4); EOSINOPHILS % (AUTO) 2.3 % (0.0-4.0); LYMPHOCYTES # (AUTO) 1.7 K/uL (1.0-5.5); LYMPHOCYTES % (AUTO) 25.6 % (20.5-51.5); MEAN CORPUSCULAR HEMOGLOBIN 31 pg (27-31); MEAN CORPUSCULAR HGB CONC 34 % (32-36); MEAN CORPUSCULAR VOLUME 93 fL (79.0-98.0); MONOCYTES # (AUTO) 0.9 K/uL (0.0-1.0); MONOCYTES % (AUTO) 13.1 % (1.7-9.3); NEUTROPHILS # (AUTO) 3.9 K/uL (1.8-7.7); NEUTROPHILS % (AUTO) 58.4 % (40.0-70.0); PLATELET COUNT (AUTO) 175 K/uL (130-430); RED BLOOD CELL COUNT(AUTO) 2.59 MIL/uL (4.2-6.2); WHITE BLOOD COUNT (AUTO) 6.7 K/uL (4.8-10.8)
[2020-04-28 19:37] LABS: ALANINE AMINOTRANSFERASE 33 U/L (12-78); ALBUMIN 2.8 g/dL (3.4-4.8); ASPARTATE AMINOTRANSFERASE 41 U/L (10-37); CALCIUM 7.9 mg/dL (8.4-11.0); CHLORIDE 97 mmol/L (98-107); CREATININE 1.22 mg/dL (0.55-1.30); GLUCOSE 151 mg/dL (70-99); POTASSIUM 4.8 mmol/L (3.5-5.1); SODIUM SERUM 130 mmol/L (136-145); THYROID STIMULATING HORMONE 4.59 uIu/mL (0.36-3.74); TOTAL BILIRUBIN 0.7 mg/dL (0.0-1.0); UREA NITROGEN, BLOOD 26 mg/dL (8-21)
[2020-04-28 19:46] LABS: ANION GAP 8 (5-15)
[2020-04-28 20:32] LABS: BILIRUBIN,URINE NEGATIVE (NEGATIVE); CLARITY/URINE CLEAR (CLEAR); COLOR,URINE YELLOW (YELLOW); GLUCOSE,URINE NEGATIVE (NEGATIVE); KETONES,URINE NEGATIVE (NEGATIVE); LEUKOCYTE ESTERASE ,URINE NEGATIVE (NEGATIVE); NITRITE, URINE NEGATIVE (NEGATIVE); PH,URINE 6.5 (5.0-8.0); PROTEIN URINE TRACE (NEGATIVE); UROBILINOGEN,URINE 0.2 (0.2-1.0)
[2020-04-28 20:57] LABS: BLOOD, URINE TRACE (NEGATIVE)
[2020-04-28 22:06] LABS: BACTERIA,URINE RARE /HPF (None Seen); MUCUS,URINE None Seen /LPF (None Seen); RBC,URINE 0-3 /HPF (0-3); WBC,URINE 0-3 /HPF (0-3)
[2020-04-28 22:07] LABS: YEAST,URINE Moderate /HPF (None Seen)
== END 2020-04-28 19:29 | disposition home or self-care (01) ==
LOC: SLB 16:14
PROVIDERS: ATTEND Internal Medicine
DX: R06.02 Shortness of breath (principal); I10 Essential (primary) hypertension; E03.9 Hypothyroidism, unspecified; N30.90 Cystitis, unspecified without hematuria; E78.5 Hyperlipidemia, unspecified; E11.65 Type 2 diabetes mellitus with hyperglycemia
CPT/HCPCS: 36415; 71045; 80053; 81000-TC; 83036; 84443-TC; 85025; 87086

== ENCOUNTER 2020-06-03 11:46 | Emergency (ER) | payer OTHER, SELFPAY ==
[~2020-06-03] VITALS: Ht 170.2 cm; Wt 99.8 kg
[~2020-06-03 11:46] MED LIST changes: +ALLO100T PO; -AMLO10TA88 PO; -ASPI-1393 PO; -FOLI-43 PO; +FURO-149 PO; -FURO-150 PO; -GLIM4TAB37 PO; +LEVO250T58 PO; -LEVO75TA7 PO; +LISI20TA30 PO; +NEPH PO; +POTA20TA83 PO; +PRO40 PO; +SYN75 PO; +VITD2000 PO
[2020-06-03 11:55] VITALS: BP_SYST 216
--- NOTE | 2020-06-03 11:55 | NUR ---
Placed in room 3. Placed on athletic monitor, blood pressure machine and pulse oximeter. To gown for exam. Side rails up. Report given to TIMOTHY Barker.
--- NOTE | 2020-06-03 12:05 | NUR ---
Pt brought by family, A&Ox4, pt presents to ER with high BP 241/141, denies pain,respirations even and unlabored, ambulatory, skin pink and warm, cap refill <3, pt current BS 276, will cont to monitor.
--- NOTE | 2020-06-03 12:10 | NUR ---
Dr Rojas evaluating patient at bedside
[2020-06-03] MEDS ORDERED: cloNIDine HCL 0.1 MG TABLET PO ONE (12:15)
[2020-06-03] MEDS ORDERED: LORazepam 1 MG TABLET PO ONE (12:15)
[2020-06-03 12:40] LABS: BASOPHILS % (AUTO) 0.7 % (0.0-2.0); EOSINOPHILS # (AUTO) 0.2 K/uL (0.0-0.4); HEMATOCRIT 33.4 % (36-48); HEMOGLOBIN 11.1 g/dL (12.0-16.0); LYMPHOCYTES # (AUTO) 1.4 K/uL (1.0-5.5); LYMPHOCYTES % (AUTO) 30.7 % (20.5-51.5); MEAN CORPUSCULAR HEMOGLOBIN 31 pg (27-31); MEAN CORPUSCULAR HGB CONC 33 % (32-36); MEAN CORPUSCULAR VOLUME 93 fL (79.0-98.0); MONOCYTES # (AUTO) 0.8 K/uL (0.0-1.0); MONOCYTES % (AUTO) 16.9 % (1.7-9.3); NEUTROPHILS # (AUTO) 2.1 K/uL (1.8-7.7); NEUTROPHILS % (AUTO) 46.7 % (40.0-70.0); PLATELET COUNT (AUTO) 162 K/uL (130-430); RED BLOOD CELL COUNT(AUTO) 3.59 MIL/uL (4.2-6.2); RED CELL DISTRIBUTION WIDTH 18.9 % (9.0-15.0); WHITE BLOOD COUNT (AUTO) 4.5 K/uL (4.8-10.8)
[2020-06-03 12:48] LABS: ANION GAP 8 (5-15); CALCIUM 8.6 mg/dL (8.4-11.0); CHLORIDE 99 mmol/L (98-107); CREATININE 1.29 mg/dL (0.55-1.30); GLUCOSE 279 mg/dL (70-99); SODIUM SERUM 133 mmol/L (136-145); UREA NITROGEN, BLOOD 18 mg/dL (8-21)
[2020-06-03 12:55] LABS: ALANINE AMINOTRANSFERASE 44 U/L (12-78); ASPARTATE AMINOTRANSFERASE 55 U/L (10-37); TOTAL BILIRUBIN 0.9 mg/dL (0.0-1.0)
--- NOTE | 2020-06-03 13:25 | NUR ---
Pt resting at this time, VSS, respirations even and unlabored.
[2020-06-03] MEDS ORDERED: LORA-258 PO (13:46)
[2020-06-03] MEDS ORDERED: LISI20TA30 PO (13:46)
[2020-06-03] MEDS ORDERED: GLU500 PO (13:46)
[2020-06-03 13:54] VITALS: BP_SYST 177
--- NOTE | 2020-06-03 13:58 | NUR ---
Patient given written and verbal discharge instructions and verbalizes understanding. ER MD discussed with patient the results and treatment provided. Patient in stable condition. ID arm band removed. Rx of Ativan, Lisinopril and metformin given. Patient educated on pain management and to follow up with PMD. Pain Scale 0/10 . Opportunity for questions provided and answered. Medication side effect fact sheet provided.
== END 2020-06-03 13:54 ==
LOC: SED 11:46
DX: I10 Essential (primary) hypertension (principal); E11.9 Type 2 diabetes mellitus without complications; K21.9 Gastro-esophageal reflux disease without esophagitis; E03.9 Hypothyroidism, unspecified; E87.5 Hyperkalemia; Z79.899 Other long term (current) drug therapy
CPT/HCPCS: 36415; 80053; 82550-TC; 82962; 83880; 84484; 85025; 99285

== ENCOUNTER 2020-07-02 08:40 | Outpatient (CLI) | payer OTHER ==
[~2020-07-02 08:40] MED LIST changes: +GLU500 PO; +LORA-258 PO
[2020-07-02 09:34] LABS: BASOPHILS % (AUTO) 0.4 % (0.0-2.0); EOSINOPHILS # (AUTO) 0.3 K/uL (0.0-0.4); EOSINOPHILS % (AUTO) 6.9 % (0.0-4.0); HEMATOCRIT 38.4 % (36-48); HEMOGLOBIN 13.1 g/dL (12.0-16.0); LYMPHOCYTES # (AUTO) 1.8 K/uL (1.0-5.5); MEAN CORPUSCULAR HEMOGLOBIN 31 pg (27-31); MEAN CORPUSCULAR HGB CONC 34 % (32-36); MEAN CORPUSCULAR VOLUME 92 fL (79.0-98.0); MONOCYTES # (AUTO) 0.6 K/uL (0.0-1.0); MONOCYTES % (AUTO) 12.6 % (1.7-9.3); NEUTROPHILS % (AUTO) 42.1 % (40.0-70.0); PLATELET COUNT (AUTO) 122 K/uL (130-430); RED BLOOD CELL COUNT(AUTO) 4.19 MIL/uL (4.2-6.2); RED CELL DISTRIBUTION WIDTH 18.5 % (9.0-15.0); WHITE BLOOD COUNT (AUTO) 4.8 K/uL (4.8-10.8)
[2020-07-02 09:48] LABS: ANION GAP 6 (5-15); CALCIUM 9.7 mg/dL (8.4-11.0); CHLORIDE 101 mmol/L (98-107); CREATININE 1.42 mg/dL (0.55-1.30); GLUCOSE 167 mg/dL (70-99); SODIUM SERUM 135 mmol/L (136-145); UREA NITROGEN, BLOOD 37 mg/dL (8-21)
== END 2020-07-02 20:31 | disposition home or self-care (01) ==
LOC: SLB 08:40
PROVIDERS: ATTEND Internal Medicine
DX: I50.9 Heart failure, unspecified (principal); N17.9 Acute kidney failure, unspecified; D64.9 Anemia, unspecified
CPT/HCPCS: 36415; 80048; 83880; 85025

== ENCOUNTER 2020-09-30 08:57 | Outpatient (CLI) | payer OTHER ==
[2020-09-30 10:46] LABS: ANION GAP 7 (5-15); CHLORIDE 103 mmol/L (98-107); GLUCOSE 127 mg/dL (70-99); POTASSIUM 4.6 mmol/L (3.5-5.1); SODIUM SERUM 136 mmol/L (136-145)
[2020-09-30 10:47] LABS: CREATININE 1.34 mg/dL (0.55-1.30); THYROID STIMULATING HORMONE 0.44 uIu/mL (0.36-3.74); UREA NITROGEN, BLOOD 29 mg/dL (8-21); URIC ACID 4.9 mg/dL (2.4-7.0)
== END 2020-09-30 20:19 | disposition home or self-care (01) ==
LOC: SLB 08:57
PROVIDERS: ATTEND Internal Medicine
DX: E79.0 Hyperuricemia without signs of inflammatory arthritis and tophaceous disease (principal); I50.9 Heart failure, unspecified; E03.9 Hypothyroidism, unspecified
CPT/HCPCS: 36415; 80048; 83880; 84443; 84550

== ENCOUNTER 2020-10-01 21:57 | Emergency (ER) | payer OTHER ==
[~2020-10-01] VITALS: Ht 157.5 cm; Wt 76.7 kg
--- NOTE | 2020-10-01 22:22 | NUR ---
Patient to ER bed 3 to gown for evaluation. Side rails up.
--- NOTE | 2020-10-01 22:29 | NUR ---
PT BIB DAUGHTER TO ER FOR COMPLAINTS OF LIP BLEEDING SINCE THIS MORNING. PT IS STATING SHE IS ANEMIC AND WORRIED THAT SHE SAFIA BE LOSING TOO MUCH BLOOD. AN APPOINTMENT WITH HER PRIMARY DOCTOR IS SET UP FOR NEXT WEEK, BUT SHE WNATS TO BE SAFE NOW. -PAIN. -SOB,-CP. PT IS A&OX4 AND HAS NO ACTIVE BLEEDING AT THIS TIME
[2020-10-01 22:30] VITALS: BP_SYST 159
--- NOTE | 2020-10-01 22:41 | NUR ---
ER at bedside examining patient.
--- NOTE | 2020-10-01 22:54 | NUR ---
PT REFUSED TO HAVE BLOOD DRAWN AND WANTS TO LEAVE ER. DR ZHU WILL BE INFORMED
[2020-10-01 23:00] VITALS: BP_SYST 159
--- NOTE | 2020-10-01 23:02 | NUR ---
Patient does not wish to proceed with medical care recommended by DR. ZHU. Patient given information related to possible complications, up to and including , which could occur as a result of leaving hospital at this time. Patient verbalizes understanding of risks involved leaving against medical advice. Patient has signed AMA form.
== END 2020-10-01 23:00 | disposition left against medical advice (07) ==
LOC: SED 21:57
DX: K13.79 Other lesions of oral mucosa (principal); I10 Essential (primary) hypertension; K21.9 Gastro-esophageal reflux disease without esophagitis; E03.9 Hypothyroidism, unspecified; Z79.899 Other long term (current) drug therapy
CPT/HCPCS: 99281

== ENCOUNTER 2020-12-02 08:55 | Outpatient (CLI) | payer OTHER ==
[~2020-12-02 08:55] MED LIST changes: -GLU500 PO; -LEVO250T58 PO; -LISI20TA30 PO; -LORA-258 PO; -NEPH PO; -POTA20TA83 PO; -VITD2000 PO
[2020-12-02 10:02] LABS: BASOPHILS % (AUTO) 0.5 % (0.0-2.0); EOSINOPHILS # (AUTO) 0.3 K/uL (0.0-0.4); EOSINOPHILS % (AUTO) 6.4 % (0.0-4.0); HEMATOCRIT 37.4 % (36-48); HEMOGLOBIN 13.2 g/dL (12.0-16.0); LYMPHOCYTES # (AUTO) 1.6 K/uL (1.0-5.5); LYMPHOCYTES % (AUTO) 33.2 % (20.5-51.5); MEAN CORPUSCULAR HEMOGLOBIN 35 pg (27-31); MEAN CORPUSCULAR HGB CONC 35 % (32-36); MEAN CORPUSCULAR VOLUME 98 fL (79.0-98.0); MONOCYTES # (AUTO) 0.6 K/uL (0.0-1.0); MONOCYTES % (AUTO) 12.7 % (1.7-9.3); NEUTROPHILS # (AUTO) 2.3 K/uL (1.8-7.7); NEUTROPHILS % (AUTO) 47.2 % (40.0-70.0); PLATELET COUNT (AUTO) 150 K/uL (130-430); RED CELL DISTRIBUTION WIDTH 12.9 % (9.0-15.0); WHITE BLOOD COUNT (AUTO) 4.9 K/uL (4.8-10.8)
[2020-12-02 10:20] LABS: BILIRUBIN,URINE NEGATIVE (NEGATIVE); CLARITY/URINE CLEAR (CLEAR); COLOR,URINE YELLOW (YELLOW); GLUCOSE,URINE NEGATIVE (NEGATIVE); KETONES,URINE NEGATIVE (NEGATIVE); LEUKOCYTE ESTERASE ,URINE TRACE (NEGATIVE); NITRITE, URINE NEGATIVE (NEGATIVE); PH,URINE 6.5 (5.0-8.0); PROTEIN URINE 2+ (NEGATIVE); UROBILINOGEN,URINE 0.2 (0.2-1.0)
[2020-12-02 10:45] LABS: ALANINE AMINOTRANSFERASE 39 U/L (12-78); ANION GAP 7 (5-15); ASPARTATE AMINOTRANSFERASE 45 U/L (10-37); CALCIUM 9.1 mg/dL (8.4-11.0); CHLORIDE 97 mmol/L (98-107); CHOLESTEROL 121 mg/dL (<200); CREATININE 1.28 mg/dL (0.55-1.30); GLUCOSE 171 mg/dL (70-99); HDL CHOLESTEROL 80 mg/dL (>55); LDL CHOLESTEROL 50 mg/dL (<100); POTASSIUM 4.2 mmol/L (3.5-5.1); SODIUM SERUM 132 mmol/L (136-145); TOTAL BILIRUBIN 1.5 mg/dL (0.0-1.0); TRIGLYCERIDES 49 mg/dL (30-150); UREA NITROGEN, BLOOD 25 mg/dL (8-21)
[2020-12-02 11:52] LABS: BLOOD, URINE TRACE (NEGATIVE)
[2020-12-02 12:16] LABS: BACTERIA,URINE RARE /HPF (None Seen)
[2020-12-03 09:35] LABS: HEMOGLOBIN A1C 8.4 % (4.8-5.6)
== END 2020-12-02 20:37 | disposition home or self-care (01) ==
LOC: SLB 08:55
PROVIDERS: ATTEND Internal Medicine
DX: I11.0 Hypertensive heart disease with heart failure (principal); I50.9 Heart failure, unspecified; E11.65 Type 2 diabetes mellitus with hyperglycemia; E66.09 Other obesity due to excess calories; Z79.899 Other long term (current) drug therapy
CPT/HCPCS: 36415; 80053; 80061; 81000; 82306; 82607; 83036; 85025

== ENCOUNTER 2021-01-07 08:47 | Outpatient (CLI) | payer OTHER ==
[2021-01-07 10:13] LABS: ANION GAP 6 (5-15); CALCIUM 9.1 mg/dL (8.4-11.0); CHLORIDE 100 mmol/L (98-107); CREATININE 1.17 mg/dL (0.55-1.30); GLUCOSE 132 mg/dL (70-99); POTASSIUM 4.2 mmol/L (3.5-5.1); SODIUM SERUM 135 mmol/L (136-145); THYROID STIMULATING HORMONE 1.29 uIu/mL (0.36-3.74); UREA NITROGEN, BLOOD 30 mg/dL (8-21)
== END 2021-01-07 20:16 | disposition home or self-care (01) ==
LOC: SLB 08:47
PROVIDERS: ATTEND Internal Medicine
DX: E11.21 Type 2 diabetes mellitus with diabetic nephropathy (principal); E03.9 Hypothyroidism, unspecified
CPT/HCPCS: 36415; 80048; 84443

== ENCOUNTER 2021-03-17 08:58 | Outpatient (CLI) | payer OTHER ==
[2021-03-17 09:40] LABS: BASOPHILS % (AUTO) 0.4 % (0.0-2.0); EOSINOPHILS # (AUTO) 0.3 K/uL (0.0-0.4); EOSINOPHILS % (AUTO) 6.3 % (0.0-4.0); HEMATOCRIT 32.1 % (36-48); LYMPHOCYTES # (AUTO) 1.8 K/uL (1.0-5.5); LYMPHOCYTES % (AUTO) 36.3 % (20.5-51.5); MEAN CORPUSCULAR HEMOGLOBIN 33 pg (27-31); MEAN CORPUSCULAR HGB CONC 34 % (32-36); MEAN CORPUSCULAR VOLUME 95 fL (79.0-98.0); MONOCYTES # (AUTO) 0.7 K/uL (0.0-1.0); MONOCYTES % (AUTO) 14.1 % (1.7-9.3); NEUTROPHILS # (AUTO) 2.2 K/uL (1.8-7.7); NEUTROPHILS % (AUTO) 42.9 % (40.0-70.0); PLATELET COUNT (AUTO) 132 K/uL (130-430); RED BLOOD CELL COUNT(AUTO) 3.37 MIL/uL (4.2-6.2); RED CELL DISTRIBUTION WIDTH 13.4 % (9.0-15.0)
[2021-03-17 10:42] LABS: ALANINE AMINOTRANSFERASE 38 U/L (12-78); ALBUMIN 2.6 g/dL (3.4-4.8); ANION GAP 6 (5-15); ASPARTATE AMINOTRANSFERASE 43 U/L (10-37); CALCIUM 8.2 mg/dL (8.4-11.0); CHLORIDE 99 mmol/L (98-107); CHOLESTEROL 140 mg/dL (<200); CREATININE 1.33 mg/dL (0.55-1.30); GLUCOSE 99 mg/dL (70-99); HDL CHOLESTEROL 80 mg/dL (>55); LDL CHOLESTEROL 48 mg/dL (<100); POTASSIUM 4.5 mmol/L (3.5-5.1); SODIUM SERUM 134 mmol/L (136-145); TOTAL BILIRUBIN 1.3 mg/dL (0.0-1.0); TRIGLYCERIDES 36 mg/dL (30-150); UREA NITROGEN, BLOOD 29 mg/dL (8-21); URIC ACID 8.9 mg/dL (2.4-7.0)
[2021-03-17 11:19] LABS: BILIRUBIN,URINE NEGATIVE (NEGATIVE); CLARITY/URINE CLEAR (CLEAR); COLOR,URINE YELLOW (YELLOW); GLUCOSE,URINE NEGATIVE (NEGATIVE); KETONES,URINE NEGATIVE (NEGATIVE); LEUKOCYTE ESTERASE ,URINE 1+ (NEGATIVE); NITRITE, URINE NEGATIVE (NEGATIVE); PH,URINE 6.5 (5.0-8.0); PROTEIN URINE 1+ (NEGATIVE); UROBILINOGEN,URINE 0.2 (0.2-1.0)
[2021-03-17 11:39] LABS: BLOOD, URINE TRACE (NEGATIVE)
[2021-03-17 11:54] LABS: BACTERIA,URINE FEW /HPF (None Seen); YEAST,URINE Few /HPF (None Seen)
[2021-03-17 11:57] LABS: THYROID STIMULATING HORMONE 2.55 uIu/mL (0.34-4.82)
== END 2021-03-17 21:38 | disposition home or self-care (01) ==
LOC: SLB 08:58
PROVIDERS: ATTEND Internal Medicine
DX: E11.21 Type 2 diabetes mellitus with diabetic nephropathy (principal); I10 Essential (primary) hypertension; E56.9 Vitamin deficiency, unspecified; E78.5 Hyperlipidemia, unspecified; E03.9 Hypothyroidism, unspecified; E55.9 Vitamin D deficiency, unspecified; Z79.899 Other long term (current) drug therapy
CPT/HCPCS: 36415; 80053; 80061; 81000; 82306; 82607; 83036; 84443; 84550; 85025; 87086

== ENCOUNTER 2021-04-06 16:10 | Emergency (ER) | payer OTHER, SELFPAY ==
[~2021-04-06] VITALS: Ht 157.5 cm; Wt 83.9 kg
[2021-04-06 16:42] VITALS: BP_SYST 194
--- NOTE | 2021-04-06 16:42 | NUR ---
Patient triaged and placed in waiting room. VSS and patient appears in no acute distress at this time. Accompanied by SELF, awaiting available bed, and MD notified of need for MSE.
--- NOTE | 2021-04-06 16:45 | NUR ---
PATIENT BROUGHT IN WITH DAUGHTER AMBULATORY WITH WALKER COMPLAINING OF GENERALIZED WEAKNESS X 2 WEEKS. PATIENT REPORTS FEELING FAINT. DENIES ANY PAIN, SOB, OR ANY OTHER COMPLAINTS. MILD SWELLING NOTED BILATERALLY TO LOWER EXTREMITIES.
--- NOTE | 2021-04-06 17:23 | NUR ---
ER Dr. AGUIRRE IN TRIAGE examining patient.
[2021-04-06 19:49] LABS: BASOPHILS % (AUTO) 0.6 % (0.0-2.0); EOSINOPHILS # (AUTO) 0.2 K/uL (0.0-0.4); EOSINOPHILS % (AUTO) 2.8 % (0.0-4.0); HEMOGLOBIN 9.9 g/dL (12.0-16.0); LYMPHOCYTES # (AUTO) 1.7 K/uL (1.0-5.5); LYMPHOCYTES % (AUTO) 28.8 % (20.5-51.5); MEAN CORPUSCULAR HEMOGLOBIN 32 pg (27-31); MEAN CORPUSCULAR HGB CONC 34 % (32-36); MEAN CORPUSCULAR VOLUME 94 fL (79.0-98.0); MONOCYTES # (AUTO) 0.8 K/uL (0.0-1.0); MONOCYTES % (AUTO) 13.2 % (1.7-9.3); NEUTROPHILS # (AUTO) 3.2 K/uL (1.8-7.7); NEUTROPHILS % (AUTO) 54.6 % (40.0-70.0); PLATELET COUNT (AUTO) 147 K/uL (130-430); RED CELL DISTRIBUTION WIDTH 13.7 % (9.0-15.0); WHITE BLOOD COUNT (AUTO) 5.9 K/uL (4.8-10.8)
[2021-04-06 20:10] LABS: ANION GAP 7 (5-15); CALCIUM 8.4 mg/dL (8.4-11.0); CHLORIDE 98 mmol/L (98-107); CREATININE 1.28 mg/dL (0.55-1.30); GLUCOSE 104 mg/dL (70-99); POTASSIUM 4.7 mmol/L (3.5-5.1); SODIUM SERUM 132 mmol/L (136-145); UREA NITROGEN, BLOOD 37 mg/dL (8-21)
[2021-04-06 20:25] LABS: ALANINE AMINOTRANSFERASE 34 U/L (12-78); ALBUMIN 2.8 g/dL (3.4-4.8); ASPARTATE AMINOTRANSFERASE 44 U/L (10-37); FREE T4 (FREE THYROXINE) 1.4 ng/dl (0.8-1.5); THYROID STIMULATING HORMONE 3.21 uIu/mL (0.36-3.74)
[2021-04-06 21:22] LABS: ACETONE, SERUM NEGATIVE (NEGATIVE)
[2021-04-06 21:32] VITALS: BP_SYST 176
--- NOTE | 2021-04-06 21:32 | NUR ---
Patient given written and verbal discharge instructions and verbalizes understanding. ER MD discussed with patient the results and treatment provided. Patient in stable condition. ID arm band removed. No RX given. Patient educated on pain management and to follow up with PMD. Pain Scale 0/10 Opportunity for questions provided and answered.
== END 2021-04-06 21:32 | disposition home or self-care (01) ==
LOC: SED 16:10
DX: R53.1 Weakness (principal); I10 Essential (primary) hypertension; K21.9 Gastro-esophageal reflux disease without esophagitis; E11.9 Type 2 diabetes mellitus without complications; G31.89 Other specified degenerative diseases of nervous system; Z79.899 Other long term (current) drug therapy
CPT/HCPCS: 36415; 70450-TC; 71045; 76376; 80053; 82009; 82550; 83605; 84439; 84443; 85025; 93005; 99285

== ENCOUNTER 2021-05-08 15:48 | Emergency (ER) | payer OTHER, SELFPAY ==
[~2021-05-08] VITALS: Ht 154.9 cm; Wt 79.4 kg
[~2021-05-08 15:48] MED LIST changes: +COR12.5 PO; +FLUT16SP16 NS; +NEPH PO; +REPA1TAB8 PO; +SACU1TAB PO
[2021-05-08 16:22] VITALS: BP_SYST 191
--- NOTE | 2021-05-08 16:25 | NUR ---
PT COMES TO ER ACCOMPANIED BY DTR WITH C.O RT UPPER ABDOMINAL PAIN RADIATING TO RT UPPER BACK, INTERMITTENT X 1 DAY. PAIN 10/10. VERBALIZES NAUSEA/DIARRHEA, DENIES VOMITTING/FEVERS/CHILLS. PER DTR, DR TELLEZ STATES SHE HAS GALLSTONES AND SENT FOR CARE. DENIES DYSURIA. SKIN W/D/I. RESP EVEN AND UNLABORED, ON RA @99% ABD LARGE/SOFT. SAFTEY PRECAUTIONS IN PLACE.
--- NOTE | 2021-05-08 16:28 | NUR ---
DR JOHNATHAN DORADO FOR EXAM.
--- NOTE | 2021-05-08 18:19 | NUR ---
US AT BEDSIDE
[2021-05-08 18:33] LABS: BASOPHILS % (AUTO) 0.5 % (0.0-2.0); EOSINOPHILS # (AUTO) 0.2 K/uL (0.0-0.4); EOSINOPHILS % (AUTO) 4.1 % (0.0-4.0); HEMATOCRIT 32.2 % (36-48); HEMOGLOBIN 10.7 g/dL (12.0-16.0); LYMPHOCYTES # (AUTO) 1.6 K/uL (1.0-5.5); MEAN CORPUSCULAR HEMOGLOBIN 31 pg (27-31); MEAN CORPUSCULAR HGB CONC 33 % (32-36); MEAN CORPUSCULAR VOLUME 93 fL (79.0-98.0); MONOCYTES # (AUTO) 0.7 K/uL (0.0-1.0); MONOCYTES % (AUTO) 11.9 % (1.7-9.3); NEUTROPHILS % (AUTO) 54.5 % (40.0-70.0); PLATELET COUNT (AUTO) 136 K/uL (130-430); RED BLOOD CELL COUNT(AUTO) 3.48 MIL/uL (4.2-6.2); RED CELL DISTRIBUTION WIDTH 15.9 % (9.0-15.0); WHITE BLOOD COUNT (AUTO) 5.5 K/uL (4.8-10.8)
[2021-05-08 18:36] LABS: ANION GAP 9 (5-15); CALCIUM 7.8 mg/dL (8.4-11.0); CHLORIDE 96 mmol/L (98-107); CREATININE 1.33 mg/dL (0.55-1.30); GLUCOSE 157 mg/dL (70-99); POTASSIUM 3.9 mmol/L (3.5-5.1); SODIUM SERUM 130 mmol/L (136-145); UREA NITROGEN, BLOOD 25 mg/dL (8-21)
[2021-05-08 18:55] LABS: ALANINE AMINOTRANSFERASE 33 U/L (12-78); ALBUMIN 2.7 g/dL (3.4-4.8); ASPARTATE AMINOTRANSFERASE 41 U/L (10-37); LIPASE 246 U/L (73-393); TOTAL BILIRUBIN 0.8 mg/dL (0.0-1.0)
--- NOTE | 2021-05-08 19:09 | NUR ---
NO ACUTE CHNAGES IN CONDITION, URINE COLLECTED AND SENT TO LAB.
[2021-05-08 19:12] LABS: BILIRUBIN,URINE NEGATIVE (NEGATIVE); CLARITY/URINE CLEAR (CLEAR); COLOR,URINE YELLOW (YELLOW); GLUCOSE,URINE NEGATIVE (NEGATIVE); KETONES,URINE NEGATIVE (NEGATIVE); LEUKOCYTE ESTERASE ,URINE NEGATIVE (NEGATIVE); NITRITE, URINE NEGATIVE (NEGATIVE); PROTEIN URINE 1+ (NEGATIVE); UROBILINOGEN,URINE 0.2 (0.2-1.0)
--- NOTE | 2021-05-08 19:19 | NUR ---
RECEIVED REPORT FROM TIMOTHY ESPINOZA REGARDING CONDITION. PT IN NO ACUTE DISTRESS AT THIS TIME. PT DENIES ANY PAIN, PENDINGDISPOSITION. DAUGHTER AT THE BEDSIDE. WILL MONITOR NEEDED
[2021-05-08 19:23] LABS: BLOOD, URINE TRACE (NEGATIVE)
[2021-05-08 19:24] LABS: WBC,URINE NONE SEEN /HPF (0-3)
[2021-05-08 19:25] LABS: BACTERIA,URINE FEW /HPF (None Seen); MUCUS,URINE None Seen /LPF (None Seen)
[2021-05-08] MEDS ORDERED: SACUBITRIL/VALSARTAN 24 MG-26 MG 1 TABLET PO ONE (20:30)
--- NOTE | 2021-05-08 20:39 | NUR ---
PT B/P AT / MADE AWARE.
[2021-05-08] MEDS ORDERED: CARVEDILOL 6.25 MG TABLET (COREG) PO ONE (21:00)
[2021-05-08 22:14] VITALS: BP_SYST 168
--- NOTE | 2021-05-08 22:17 | NUR ---
PT NOTIFIED IN [place] BY STAFF MEMBER OF DISCHARGE. PT PROVIDED WITH DISCHARGE PAPERWORK, PROVIDED PT DAUGHTERWITH EDUCATION REGARDING PRESCRIPTION ENCOURAGED PT TO FOLLOW UP WITH PRIMARY CARE PHYSICIAN WITHIN 3 DAYS. IV REMOVED FROM LAC TIP OF CATHETER INTACT CLEAN GAUZE AND PAPER TAPE APPLIED TO SITE. INSTRUCTED PT TO LEAVE DRESSING IN PLACE FOR 30 MINUTE PRIOR TO REMOVAL. PT TRANSPORT VIA WHEELCHAIR BY CAR ACCOMPANIED BY DAUGHTER WITH ALL PERSONAL BELONGINGS. ALL QUESTIONS ANSWERED
== END 2021-05-08 22:22 | disposition home or self-care (01) ==
LOC: SED 15:48
DX: R10.10 Upper abdominal pain, unspecified (principal); I10 Essential (primary) hypertension; E11.9 Type 2 diabetes mellitus without complications; K21.9 Gastro-esophageal reflux disease without esophagitis; E03.9 Hypothyroidism, unspecified; Z79.899 Other long term (current) drug therapy
CPT/HCPCS: 36415; 71045; 76705; 80053; 81000; 83690; 84484; 85025; 93005; 99285

== ENCOUNTER 2021-06-10 06:41 | Day surgery (SDC) | payer OTHER, SELFPAY ==
[~2021-06-10] VITALS: Ht 157.5 cm; Wt 78.0 kg
[2021-06-10] MEDS ORDERED: MIDAZOLAM HCL 5 MG/5 ML VIAL ONE (07:38)
[2021-06-10] MEDS ORDERED: MEPERIDINE 100 MG INJ. 100 MG/ML VIAL ONE (07:38)
[2021-06-10] MEDS ORDERED: SIMETHICONE 40 MG/0.6 ML ML ONE (07:38)
[2021-06-10 12:52] VITALS: BP_SYST 93
== END 2021-06-10 10:05 | disposition home or self-care (01) ==
LOC: SDS 06:41 → SMU 06:42 → SDS 10:05
PROVIDERS: ATTEND Internal Medicine Gastroenterology
DX: R19.5 Other fecal abnormalities (principal); R10.10 Upper abdominal pain, unspecified; K29.50 Unspecified chronic gastritis without bleeding; K29.80 Duodenitis without bleeding; K57.30 Diverticulosis of large intestine without perforation or abscess without bleeding; K64.8 Other hemorrhoids; K44.9 Diaphragmatic hernia without obstruction or gangrene; D64.9 Anemia, unspecified; Z79.899 Other long term (current) drug therapy; Z20.822 Contact with and (suspected) exposure to COVID-19
CPT/HCPCS: 36415 ×2; 43239; 45380; 45385; 82962; 87081; 87426; 88305; 88312; 88313; 99152; 99153; G0378; J2175; J2250; U0003

== ENCOUNTER 2021-06-24 08:17 | Outpatient (CLI) | payer OTHER ==
[2021-06-24 10:04] LABS: BASOPHILS % (AUTO) 0.6 % (0.0-2.0); EOSINOPHILS # (AUTO) 0.3 K/uL (0.0-0.4); EOSINOPHILS % (AUTO) 7.4 % (0.0-4.0); HEMATOCRIT 38.2 % (36-48); HEMOGLOBIN 13.1 g/dL (12.0-16.0); LYMPHOCYTES # (AUTO) 1.9 K/uL (1.0-5.5); LYMPHOCYTES % (AUTO) 40.2 % (20.5-51.5); MEAN CORPUSCULAR HEMOGLOBIN 32 pg (27-31); MEAN CORPUSCULAR HGB CONC 34 % (32-36); MEAN CORPUSCULAR VOLUME 93 fL (79.0-98.0); MONOCYTES # (AUTO) 0.6 K/uL (0.0-1.0); MONOCYTES % (AUTO) 13.7 % (1.7-9.3); NEUTROPHILS # (AUTO) 1.8 K/uL (1.8-7.7); NEUTROPHILS % (AUTO) 38.1 % (40.0-70.0); PLATELET COUNT (AUTO) 150 K/uL (130-430); RED BLOOD CELL COUNT(AUTO) 4.13 MIL/uL (4.2-6.2); RED CELL DISTRIBUTION WIDTH 18.5 % (9.0-15.0); WHITE BLOOD COUNT (AUTO) 4.6 K/uL (4.8-10.8)
[2021-06-24 10:33] LABS: ALANINE AMINOTRANSFERASE 34 U/L (12-78); ALBUMIN 2.9 g/dL (3.4-4.8); ANION GAP 2 (5-15); ASPARTATE AMINOTRANSFERASE 43 U/L (10-37); CALCIUM 9.5 mg/dL (8.4-11.0); CHLORIDE 97 mmol/L (98-107); CREATININE 1.49 mg/dL (0.55-1.30); GLUCOSE 174 mg/dL (70-99); SODIUM SERUM 127 mmol/L (136-145); THYROID STIMULATING HORMONE 1.31 uIu/mL (0.36-3.74); TOTAL BILIRUBIN 0.8 mg/dL (0.0-1.0); UREA NITROGEN, BLOOD 40 mg/dL (8-21)
[2021-06-24 11:21] LABS: BILIRUBIN,URINE NEGATIVE (NEGATIVE); BLOOD, URINE NEGATIVE (NEGATIVE); CLARITY/URINE CLEAR (CLEAR); COLOR,URINE YELLOW (YELLOW); GLUCOSE,URINE NEGATIVE (NEGATIVE); KETONES,URINE NEGATIVE (NEGATIVE); LEUKOCYTE ESTERASE ,URINE NEGATIVE (NEGATIVE); NITRITE, URINE NEGATIVE (NEGATIVE); PROTEIN URINE 1+ (NEGATIVE); UROBILINOGEN,URINE 0.2 (0.2-1.0)
== END 2021-06-24 20:09 | disposition home or self-care (01) ==
LOC: SLB 08:17
PROVIDERS: ATTEND Internal Medicine
DX: I11.0 Hypertensive heart disease with heart failure (principal); I50.9 Heart failure, unspecified; E11.21 Type 2 diabetes mellitus with diabetic nephropathy; E03.9 Hypothyroidism, unspecified; R39.9 Unspecified symptoms and signs involving the genitourinary system
CPT/HCPCS: 36415; 80053; 81003; 84443; 85025; 87086

== ENCOUNTER 2021-08-11 15:54 | Emergency (ER) | payer OTHER ==
[~2021-08-11] VITALS: Ht 160 cm; Wt 81.6 kg
[2021-08-11 16:20] VITALS: BP_SYST 180
--- NOTE | 2021-08-11 16:25 | NUR ---
Pt bib family from home. Pt has swelling and pustule indicative of abscess located on anterior chin. aaox4 pt vs wnl. Pt states pain level 7/10. Does not tolerate narcotics well. Pt abscess DX by MD Dona Saucedo 08/11/21. PMH DM, HTN
[2021-08-11] MEDS ORDERED: LIDOCAINE/EPI 2% 1:100000 20 ML VIAL INJ ONE (17:15)
--- NOTE | 2021-08-11 18:30 | NUR ---
BS MSE WITH PT
[2021-08-11] MEDS ORDERED: BACI15OI13 TP (18:32)
[2021-08-11] MEDS ORDERED: CEPH-548 PO (18:32)
[2021-08-11] MEDS ORDERED: BACITRACIN ZINC 15 GM TOPICAL OINTMENT TP SCH (19:00)
[2021-08-11] MEDS ORDERED: CLIN-142 PO (19:04)
[2021-08-11 19:16] VITALS: BP_SYST 180
--- NOTE | 2021-08-11 19:18 | NUR ---
Patient given written and verbal discharge instructions and verbalizes understanding. ER MD discussed with patient the results and treatment provided. Patient in stable condition. ID arm band removed. Rx of ABX AND BACITRACIN OINTMENT given. Opportunity for questions provided and answered. Medication side effect fact sheet provided.
== END 2021-08-11 19:16 | disposition home or self-care (01) ==
LOC: SED 15:54
DX: L02.01 Cutaneous abscess of face (principal); E11.9 Type 2 diabetes mellitus without complications; I10 Essential (primary) hypertension; K21.9 Gastro-esophageal reflux disease without esophagitis
CPT/HCPCS: 99284

== ENCOUNTER 2021-08-14 16:02 | Emergency (ER) | payer OTHER ==
[~2021-08-14] VITALS: Ht 157.5 cm; Wt 72.6 kg
[~2021-08-14 16:02] MED LIST changes: +BACI15OI13 TP; +CEPH-548 PO; +CLIN-142 PO
[2021-08-14] MEDS ORDERED: BACITRACIN 1 GM OINT TP ONE ×2 (17:07→17:15)
--- NOTE | 2021-08-14 17:07 | NUR ---
Pt present to ED for reassessment of wound to chin. pt in no acute distress at this time. AOx4 GCS 15. Wound cleaned with saline and bacitracin ointment applied after cleaning. Will continue to monitor pt
[2021-08-14 17:15] VITALS: BP_SYST 124
--- NOTE | 2021-08-14 17:20 | NUR ---
Dressed wound w. Bacitracin & dry bulky dressing.
[2021-08-14 17:21] VITALS: BP_SYST 177
--- NOTE | 2021-08-14 17:32 | NUR ---
Pt seen by ED physician in bed 6 AOx4 GCS 15. Wound cleaned by EMT at bedside. Pt in no acute distress at this time
--- NOTE | 2021-08-14 17:38 | NUR ---
Patient given written and verbal discharge instructions and verbalizes understanding. ER MD discussed with patient the results and treatment provided. Patient in stable condition. ID arm band removed. Patient educated on pain management and to follow up with PMD. Pain Scale 0/10. Opportunity for questions provided and answered. Medication side effect fact sheet provided. Pt in no acute distress at this time AOx4 GCS 15 at time of D/C
== END 2021-08-14 17:38 | disposition home or self-care (01) ==
LOC: SED 16:02
DX: L02.01 Cutaneous abscess of face (principal); E11.9 Type 2 diabetes mellitus without complications; I10 Essential (primary) hypertension; K21.9 Gastro-esophageal reflux disease without esophagitis
CPT/HCPCS: 99282

== ENCOUNTER 2021-09-10 14:44 | Emergency (ER) | payer OTHER ==
[~2021-09-10] VITALS: Ht 154.9 cm; Wt 81.6 kg
[2021-09-10 15:23] VITALS: BP_SYST 182
--- NOTE | 2021-09-10 15:30 | NUR ---
Triaged pt and pt placed in waiting room accompanied by her daughter. A&Ox4. BP elevated at 182/65, other vitals stable. Pt states she is going to take her medication for her BP because she normally takes it in the afternoon. Dr. Oakes made aware.
--- NOTE | 2021-09-10 15:30 | NUR ---
Pt c/o failure to thrive x4 days. Pt is A&Ox4. Skin intact. States she has been feeling fatigue, lack of appetite, diarrhea, and neck pain 6/10 non-radiating and is constant. has hx of HTN. NKA. Pupils PERRLA. Elevated BP, other vitals stable. Accompanied by family member. Ambulatory with steady gait.
[2021-09-10 16:09] LABS: ANION GAP 7 (5-15); CALCIUM 7.3 mg/dL (8.4-11.0); CHLORIDE 96 mmol/L (98-107); CREATININE 1.35 mg/dL (0.55-1.30); GLUCOSE 148 mg/dL (70-99); POTASSIUM 4.1 mmol/L (3.5-5.1); SODIUM SERUM 128 mmol/L (136-145); UREA NITROGEN, BLOOD 27 mg/dL (8-21)
[2021-09-10 16:15] LABS: ALANINE AMINOTRANSFERASE 45 U/L (12-78); ALBUMIN 2.4 g/dL (3.4-4.8); ASPARTATE AMINOTRANSFERASE 75 U/L (10-37); TOTAL BILIRUBIN 1.3 mg/dL (0.0-1.0)
[2021-09-10 16:23] LABS: HEMATOCRIT 35.7 % (36-48); HEMOGLOBIN 12.2 g/dL (12.0-16.0); MEAN CORPUSCULAR HEMOGLOBIN 33 pg (27-31); MEAN CORPUSCULAR HGB CONC 34 % (32-36); MEAN CORPUSCULAR VOLUME 95 fL (79.0-98.0); RED BLOOD CELL COUNT(AUTO) 3.76 MIL/uL (4.2-6.2); RED CELL DISTRIBUTION WIDTH 14.4 % (9.0-15.0); WHITE BLOOD COUNT (AUTO) 2.8 K/uL (4.8-10.8)
[2021-09-10 17:34] LABS: PLATELET COUNT (AUTO) 103 K/uL (130-430)
--- NOTE | 2021-09-10 18:01 | NUR ---
ACCORDING TO PT FAMILY, PT IN CAR AND SHAKING. PT PLACED IN WHEELCHAIR AND PLACED IN HALLWAY FOR EVALUATION
[2021-09-10] MEDS ORDERED: NACL 0.9% 1,000 ML IV ONE (18:30)
[2021-09-10 19:03] LABS: BAND % (MANUAL) 3 % (0-6)
[2021-09-10 19:04] LABS: BASOPHILS % (MANUAL) 0 % (0-2); EOSINOPHILS % (MANUAL) 1 % (0-7); LYMPHOCYTES % (MANUAL) 41 % (20-46); MONOCYTES % (MANUAL) 11 % (0-11)
[2021-09-10 19:31] LABS: BILIRUBIN,URINE NEGATIVE (NEGATIVE); BLOOD, URINE 1+ (NEGATIVE); CLARITY/URINE CLEAR (CLEAR); COLOR,URINE ORANGE (YELLOW); GLUCOSE,URINE NEGATIVE (NEGATIVE); KETONES,URINE NEGATIVE (NEGATIVE); LEUKOCYTE ESTERASE ,URINE NEGATIVE (NEGATIVE); NITRITE, URINE NEGATIVE (NEGATIVE); PROTEIN URINE 3+ (NEGATIVE); UROBILINOGEN,URINE 0.2 (0.2-1.0)
[2021-09-10 19:46] LABS: BACTERIA,URINE FEW /HPF (None Seen); RBC,URINE 0-3 /HPF (0-3); WBC,URINE 0-3 /HPF (0-3); YEAST,URINE Few /HPF (None Seen)
--- NOTE | 2021-09-10 20:11 | NUR ---
Report received at this time. Family member at bedside. No acute distress. Respirations even and unlabored. Normal skin colro for ethnicity.
[2021-09-10] MEDS ORDERED: IBUPROFEN 600 MG TABLET PO ONE (20:15)
[2021-09-10] MEDS ORDERED: DICYCLOMINE HCL 10 MG CAPSULE PO ONE (20:30)
[2021-09-10] MEDS ORDERED: DICY10CA13 PO (20:51)
--- NOTE | 2021-09-10 20:58 | NUR ---
Patient given written and verbal discharge instructions and verbalizes understanding. ER MD discussed with patient the results and treatment provided. Patient in stable condition. ID arm band removed. IV catheter removed intact and dressing applied, no active bleeding. Rx of bentyl given. Patient educated on pain management and to follow up with PMD. Pain Scale . Opportunity for questions provided and answered. Medication side effect fact sheet provided.
[2021-09-10 20:59] VITALS: BP_SYST 182
== END 2021-09-10 20:59 | disposition home or self-care (01) ==
LOC: SED 14:44
DX: A08.4 Viral intestinal infection, unspecified (principal); E86.0 Dehydration; E78.5 Hyperlipidemia, unspecified; I11.0 Hypertensive heart disease with heart failure; I50.9 Heart failure, unspecified; E11.9 Type 2 diabetes mellitus without complications; K21.9 Gastro-esophageal reflux disease without esophagitis; Z79.899 Other long term (current) drug therapy
CPT/HCPCS: 36415; 74176; 76376; 80053; 81000; 85007; 85027; 96360; 99284; J7030

== ENCOUNTER 2021-09-13 05:42 | Emergency (ER) | payer OTHER ==
[~2021-09-13] VITALS: Ht 154.9 cm; Wt 81.6 kg
[~2021-09-13 05:42] MED LIST changes: +DICY10CA13 PO
[2021-09-13 06:30] VITALS: BP_SYST 202
--- NOTE | 2021-09-13 08:27 | NUR ---
ERMD AT BEDSIDE
[2021-09-13] MEDS ORDERED: ONDANSETRON HCL 4 MG/2 ML VIAL IVP ONE ×2 (08:30)
[2021-09-13] MEDS ORDERED: NACL 0.9% 1,000 ML IV ONE (08:30)
[2021-09-13 09:02] LABS: BASOPHILS % (AUTO) 0.2 % (0.0-2.0); EOSINOPHILS % (AUTO) 0.5 % (0.0-4.0); HEMATOCRIT 32.8 % (36-48); HEMOGLOBIN 11.4 g/dL (12.0-16.0); LYMPHOCYTES # (AUTO) 1.7 K/uL (1.0-5.5); LYMPHOCYTES % (AUTO) 28.2 % (20.5-51.5); MEAN CORPUSCULAR HEMOGLOBIN 33 pg (27-31); MEAN CORPUSCULAR HGB CONC 35 % (32-36); MEAN CORPUSCULAR VOLUME 95 fL (79.0-98.0); MONOCYTES # (AUTO) 0.6 K/uL (0.0-1.0); MONOCYTES % (AUTO) 9.7 % (1.7-9.3); NEUTROPHILS # (AUTO) 3.7 K/uL (1.8-7.7); NEUTROPHILS % (AUTO) 61.4 % (40.0-70.0); PLATELET COUNT (AUTO) 126 K/uL (130-430); RED BLOOD CELL COUNT(AUTO) 3.45 MIL/uL (4.2-6.2); RED CELL DISTRIBUTION WIDTH 14.6 % (9.0-15.0)
[2021-09-13 09:21] LABS: ALANINE AMINOTRANSFERASE 35 U/L (12-78); ALBUMIN 2.2 g/dL (3.4-4.8); ANION GAP 9 (5-15); ASPARTATE AMINOTRANSFERASE 58 U/L (10-37); CHLORIDE 98 mmol/L (98-107); CREATININE 1.21 mg/dL (0.55-1.30); GLUCOSE 77 mg/dL (70-99); POTASSIUM 4.4 mmol/L (3.5-5.1); SODIUM SERUM 130 mmol/L (136-145); TOTAL BILIRUBIN 1.4 mg/dL (0.0-1.0); UREA NITROGEN, BLOOD 28 mg/dL (8-21)
--- NOTE | 2021-09-13 10:00 | NUR ---
A/OX4 VSS ,APPEARS TO BE IN NO ACUTE DISTRESS NOTED AT THIS TIME, FAMILY AT BEDSIDE
--- NOTE | 2021-09-13 12:30 | NUR ---
PT SIGNED AMA PAPERWORK PER TRIAGE NURSE
== END 2021-09-13 12:30 | disposition left against medical advice (07) ==
LOC: SED 05:42
DX: E86.0 Dehydration (principal); R19.7 Diarrhea, unspecified; E78.5 Hyperlipidemia, unspecified; E11.9 Type 2 diabetes mellitus without complications; I10 Essential (primary) hypertension; K21.9 Gastro-esophageal reflux disease without esophagitis; Z79.899 Other long term (current) drug therapy
CPT/HCPCS: 99284; 96374; 96361; 80053; 85025; 36415; J2405; J7030; 99283

== ENCOUNTER 2022-09-29 09:05 | Outpatient (CLI) | payer OTHER ==
[~2022-09-29 09:05] MED LIST changes: -CEPH-548 PO; -CLIN-142 PO
[2022-09-29 09:44] LABS: BASOPHILS % (AUTO) 0.8 % (0.0-2.0); EOSINOPHILS # (AUTO) 0.3 K/uL (0.0-0.4); EOSINOPHILS % (AUTO) 7.5 % (0.0-4.0); HEMATOCRIT 37.5 % (36-48); HEMOGLOBIN 12.6 g/dL (12.0-16.0); LYMPHOCYTES # (AUTO) 1.5 K/uL (1.0-5.5); LYMPHOCYTES % (AUTO) 35.8 % (20.5-51.5); MEAN CORPUSCULAR HEMOGLOBIN 32 pg (27-31); MEAN CORPUSCULAR HGB CONC 34 % (32-36); MEAN CORPUSCULAR VOLUME 96 fL (79.0-98.0); MONOCYTES # (AUTO) 0.6 K/uL (0.0-1.0); MONOCYTES % (AUTO) 15.2 % (1.7-9.3); NEUTROPHILS # (AUTO) 1.7 K/uL (1.8-7.7); NEUTROPHILS % (AUTO) 40.7 % (40.0-70.0); PLATELET COUNT (AUTO) 146 K/uL (130-430); RED BLOOD CELL COUNT(AUTO) 3.92 MIL/uL (4.2-6.2); RED CELL DISTRIBUTION WIDTH 14.4 % (9.0-15.0); WHITE BLOOD COUNT (AUTO) 4.2 K/uL (4.8-10.8)
[2022-09-29 10:08] LABS: ALANINE AMINOTRANSFERASE 36 U/L (12-78); ALBUMIN 2.8 g/dL (3.4-4.8); ANION GAP 7 (5-15); ASPARTATE AMINOTRANSFERASE 36 U/L (10-37); CALCIUM 8.5 mg/dL (8.4-11.0); CHLORIDE 97 mmol/L (98-107); CHOLESTEROL 109 mg/dL (<200); CREATININE 1.91 mg/dL (0.55-1.30); GLUCOSE 139 mg/dL (74-106); HDL CHOLESTEROL 65 mg/dL (>55); THYROID STIMULATING HORMONE 1.03 uIu/mL (0.34-4.82); TOTAL BILIRUBIN 1.2 mg/dL (0.0-1.0); TRIGLYCERIDES 42 mg/dL (30-150); UREA NITROGEN, BLOOD 41 mg/dL (8-21)
== END 2022-09-29 19:51 | disposition short-term general hospital (02) ==
LOC: SLB 09:05
PROVIDERS: ATTEND Internal Medicine
DX: E11.65 Type 2 diabetes mellitus with hyperglycemia (principal); E11.21 Type 2 diabetes mellitus with diabetic nephropathy; E78.5 Hyperlipidemia, unspecified; I10 Essential (primary) hypertension; E03.9 Hypothyroidism, unspecified
CPT/HCPCS: 36415; 80053; 80061; 83037; 84443; 85025

== ENCOUNTER 2023-03-22 08:19 | Outpatient (CLI) | payer OTHER ==
[~2023-03-22 08:19] MED LIST changes: +CLIN-142 PO; +DICY-14 PO; -DICY10CA13 PO
[2023-03-22 09:02] LABS: BASOPHILS % (AUTO) 0.4 % (0.0-2.0); EOSINOPHILS # (AUTO) 0.2 K/uL (0.0-0.4); EOSINOPHILS % (AUTO) 4.7 % (0.0-4.0); HEMATOCRIT 29.2 % (36-48); HEMOGLOBIN 10.1 g/dL (12.0-16.0); LYMPHOCYTES # (AUTO) 1.4 K/uL (1.0-5.5); LYMPHOCYTES % (AUTO) 29.3 % (20.5-51.5); MEAN CORPUSCULAR HEMOGLOBIN 32 pg (27-31); MEAN CORPUSCULAR HGB CONC 35 % (32-36); MEAN CORPUSCULAR VOLUME 91 fL (79.0-98.0); MONOCYTES # (AUTO) 0.6 K/uL (0.0-1.0); MONOCYTES % (AUTO) 13.5 % (1.7-9.3); NEUTROPHILS # (AUTO) 2.5 K/uL (1.8-7.7); NEUTROPHILS % (AUTO) 52.1 % (40.0-70.0); PLATELET COUNT (AUTO) 198 K/uL (130-430); RED BLOOD CELL COUNT(AUTO) 3.21 MIL/uL (4.2-6.2); RED CELL DISTRIBUTION WIDTH 15.3 % (9.0-15.0); WHITE BLOOD COUNT (AUTO) 4.8 K/uL (4.8-10.8)
[2023-03-22 09:27] LABS: ALANINE AMINOTRANSFERASE 26 U/L (12-78); ALBUMIN 2.4 g/dL (3.4-4.8); ANION GAP 7 (5-15); ASPARTATE AMINOTRANSFERASE 32 U/L (10-37); CALCIUM 8.7 mg/dL (8.4-11.0); CARBON DIOXIDE 29 mmol/L (23-29); CHLORIDE 97 mmol/L (98-107); CREATININE 1.42 mg/dL (0.55-1.30); GLUCOSE 80 mg/dL (74-106); POTASSIUM 4.1 mmol/L (3.5-5.1); SODIUM SERUM 133 mmol/L (136-145); THYROID STIMULATING HORMONE 3.82 uIu/mL (0.34-4.82); TOTAL PROTEIN, SERUM 8.2 g/dL (6.4-8.3); UREA NITROGEN, BLOOD 34 mg/dL (8-21)
== END 2023-03-22 18:15 | disposition home or self-care (01) ==
LOC: SLB 08:19
PROVIDERS: ATTEND Internal Medicine
DX: E11.65 Type 2 diabetes mellitus with hyperglycemia (principal); E78.5 Hyperlipidemia, unspecified; E55.9 Vitamin D deficiency, unspecified; E03.9 Hypothyroidism, unspecified
CPT/HCPCS: 36415; 80053; 82306; 82607; 83037; 84443; 85025

== ENCOUNTER 2023-03-30 16:23 | Outpatient (CLI) | payer OTHER | END 2023-03-30 18:52 | disposition home or self-care (01) | LOC: SRD 16:23 | PROVIDERS: ATTEND Internal Medicine | DX: M17.11 Unilateral primary osteoarthritis, right knee (principal); M25.461 Effusion, right knee; M11.261 Other chondrocalcinosis, right knee | CPT/HCPCS: 73564 ==

== ENCOUNTER 2023-05-05 22:21 | Emergency (ER) | payer OTHER ==
[~2023-05-05] VITALS: Ht 157.5 cm; Wt 78.0 kg
[2023-05-05 22:34] VITALS: BP_SYST 196; PULSE 63; RESP 20; TEMP 97.8; O2SAT 98
[2023-05-05] MEDS: NACL 0.9% 1,000 ML IV ONE (23:48)
[2023-05-05] MEDS: ACETAMINOPHEN 325 MG TABLET PO ONE (23:49)
[2023-05-05] MEDS: ONDANSETRON HCL 4 MG/2 ML VIAL IVP ONE (23:54)
[2023-05-05] MEDS: CARVEDILOL 6.25 MG TABLET (COREG) PO ONE (23:54)
[2023-05-06 00:31] LABS: BASOPHILS % (AUTO) 0.3 % (0.0-2.0); EOSINOPHILS # (AUTO) 0.1 K/uL (0.0-0.4); HEMATOCRIT 32.4 % (36-48); HEMOGLOBIN 11.1 g/dL (12.0-16.0); LYMPHOCYTES # (AUTO) 1.3 K/uL (1.0-5.5); LYMPHOCYTES % (AUTO) 26.5 % (20.5-51.5); MEAN CORPUSCULAR HEMOGLOBIN 31 pg (27-31); MEAN CORPUSCULAR HGB CONC 34 % (32-36); MEAN CORPUSCULAR VOLUME 91 fL (79.0-98.0); MONOCYTES # (AUTO) 0.6 K/uL (0.0-1.0); MONOCYTES % (AUTO) 13.1 % (1.7-9.3); NEUTROPHILS # (AUTO) 2.8 K/uL (1.8-7.7); NEUTROPHILS % (AUTO) 58.1 % (40.0-70.0); PLATELET COUNT (AUTO) 146 K/uL (130-430); RED BLOOD CELL COUNT(AUTO) 3.56 MIL/uL (4.2-6.2); RED CELL DISTRIBUTION WIDTH 17.2 % (9.0-15.0); WHITE BLOOD COUNT (AUTO) 4.9 K/uL (4.8-10.8)
[2023-05-06 00:47] LABS: BILIRUBIN,URINE NEGATIVE (NEGATIVE); BLOOD, URINE NEGATIVE (NEGATIVE); COLOR,URINE YELLOW (YELLOW); GLUCOSE,URINE 3+ (NEGATIVE); KETONES,URINE NEGATIVE (NEGATIVE); LEUKOCYTE ESTERASE ,URINE NEGATIVE (NEGATIVE); NITRITE, URINE NEGATIVE (NEGATIVE); PROTEIN URINE 1+ (NEGATIVE); UROBILINOGEN,URINE 0.2 (0.2-1.0)
[2023-05-06 00:51] LABS: ANION GAP 8 (5-15); CALCIUM 8.5 mg/dL (8.4-11.0); CARBON DIOXIDE 25 mmol/L (23-29); CHLORIDE 94 mmol/L (98-107); CREATININE 1.28 mg/dL (0.55-1.30); GLUCOSE 174 mg/dL (74-106); POTASSIUM 4.1 mmol/L (3.5-5.1); SODIUM SERUM 127 mmol/L (136-145); UREA NITROGEN, BLOOD 30 mg/dL (8-21)
[2023-05-06 00:59] LABS: ALANINE AMINOTRANSFERASE 23 U/L (12-78); ALBUMIN 2.7 g/dL (3.4-4.8); ASPARTATE AMINOTRANSFERASE 44 U/L (10-37); BILIRUBIN,DIRECT 0.4 mg/dL (0.0-0.3); LIPASE 91 U/L (16-77); TOTAL BILIRUBIN 0.9 mg/dL (0.0-1.0); TOTAL PROTEIN, SERUM 8.7 g/dL (6.4-8.3)
[2023-05-06 01:15] LABS: CLARITY/URINE SLIGHTLY CLOUDY (CLEAR)
[2023-05-06 01:16] LABS: BACTERIA,URINE None Seen /HPF (None Seen); RBC,URINE 0-3 /HPF (0-3); WBC,URINE 0-3 /HPF (0-3); YEAST,URINE Few /HPF (None Seen)
[2023-05-06 01:18] LABS: INFLUENZA TYPE A Negative (NEGATIVE)
[2023-05-06 01:27] LABS: INFLUENZA TYPE B POSITIVE (NEGATIVE)
[2023-05-06] MEDS ORDERED: ONDA-8 TL (01:45)
[2023-05-06] MEDS ORDERED: ACET-2634 PO (01:45)
[2023-05-06 02:00] VITALS: BP_SYST 148; PULSE 78; RESP 18; TEMP 98.2; O2SAT 98
== END 2023-05-06 01:55 | disposition home or self-care (01) ==
LOC: SED 22:21
DX: R53.1 Weakness (principal); R11.0 Nausea; E87.1 Hypo-osmolality and hyponatremia; E11.65 Type 2 diabetes mellitus with hyperglycemia; J11.1 Influenza due to unidentified influenza virus with other respiratory manifestations; B34.9 Viral infection, unspecified; E78.5 Hyperlipidemia, unspecified; K21.9 Gastro-esophageal reflux disease without esophagitis; E03.9 Hypothyroidism, unspecified; M19.90 Unspecified osteoarthritis, unspecified site; I50.9 Heart failure, unspecified; I11.0 Hypertensive heart disease with heart failure; Z90.710 Acquired absence of both cervix and uterus; Z79.899 Other long term (current) drug therapy; Z20.822 Contact with and (suspected) exposure to COVID-19
CPT/HCPCS: 99285; 96374; 71045; 96361; 87426; 80076; 80048; 81001; 83690; 85025; 87040; 87086; 84484; 36415; 93005; 83605; 87804 ×2; J2405; J7030; 81000; 81015

== ENCOUNTER 2023-06-30 07:49 | Outpatient (CLI) | payer OTHER ==
[~2023-06-30 07:49] MED LIST changes: +ACET-2634 PO; +ONDA-8 TL
[2023-06-30 08:26] LABS: BASOPHILS % (AUTO) 0.4 % (0.0-2.0); EOSINOPHILS # (AUTO) 0.4 K/uL (0.0-0.4); EOSINOPHILS % (AUTO) 7.7 % (0.0-4.0); HEMATOCRIT 29.4 % (36-48); HEMOGLOBIN 9.9 g/dL (12.0-16.0); LYMPHOCYTES % (AUTO) 39.1 % (20.5-51.5); MEAN CORPUSCULAR HEMOGLOBIN 31 pg (27-31); MEAN CORPUSCULAR HGB CONC 34 % (32-36); MEAN CORPUSCULAR VOLUME 93 fL (79.0-98.0); MONOCYTES # (AUTO) 0.7 K/uL (0.0-1.0); NEUTROPHILS % (AUTO) 38.8 % (40.0-70.0); PLATELET COUNT (AUTO) 177 K/uL (130-430); RED BLOOD CELL COUNT(AUTO) 3.18 MIL/uL (4.2-6.2); RED CELL DISTRIBUTION WIDTH 17.7 % (9.0-15.0); WHITE BLOOD COUNT (AUTO) 5.2 K/uL (4.8-10.8)
[2023-06-30 08:57] LABS: ALANINE AMINOTRANSFERASE 25 U/L (12-78); ALBUMIN 2.5 g/dL (3.4-4.8); ANION GAP 7 (5-15); ASPARTATE AMINOTRANSFERASE 36 U/L (10-37); CARBON DIOXIDE 28 mmol/L (23-29); CHLORIDE 96 mmol/L (98-107); CHOLESTEROL 107 mg/dL (<200); CREATININE 1.49 mg/dL (0.55-1.30); GLUCOSE 91 mg/dL (74-106); HDL CHOLESTEROL 52 mg/dL (>55); POTASSIUM 4.2 mmol/L (3.5-5.1); SODIUM SERUM 131 mmol/L (136-145); TOTAL PROTEIN, SERUM 8.1 g/dL (6.4-8.3); TRIGLYCERIDES 38 mg/dL (30-150); UREA NITROGEN, BLOOD 42 mg/dL (8-21)
== END 2023-06-30 18:09 | disposition home or self-care (01) ==
LOC: SLB 07:49
PROVIDERS: ATTEND Internal Medicine
DX: E11.65 Type 2 diabetes mellitus with hyperglycemia (principal); E03.9 Hypothyroidism, unspecified; E55.9 Vitamin D deficiency, unspecified; E78.5 Hyperlipidemia, unspecified
CPT/HCPCS: 36415; 80053; 80061; 83037; 84443; 85025

== ENCOUNTER 2023-10-18 07:58 | Outpatient (CLI) | payer OTHER ==
[2023-10-18 08:30] LABS: BASOPHILS % (AUTO) 0.9 % (0.0-2.0); EOSINOPHILS # (AUTO) 0.3 K/uL (0.0-0.4); EOSINOPHILS % (AUTO) 6.3 % (0.0-4.0); HEMATOCRIT 30.6 % (36-48); HEMOGLOBIN 10.7 g/dL (12.0-16.0); LYMPHOCYTES # (AUTO) 1.7 K/uL (1.0-5.5); LYMPHOCYTES % (AUTO) 35.8 % (20.5-51.5); MEAN CORPUSCULAR HEMOGLOBIN 34 pg (27-31); MEAN CORPUSCULAR HGB CONC 35 % (32-36); MEAN CORPUSCULAR VOLUME 97 fL (79.0-98.0); MONOCYTES # (AUTO) 0.7 K/uL (0.0-1.0); MONOCYTES % (AUTO) 14.3 % (1.7-9.3); NEUTROPHILS % (AUTO) 42.7 % (40.0-70.0); PLATELET COUNT (AUTO) 155 K/uL (130-430); RED BLOOD CELL COUNT(AUTO) 3.15 MIL/uL (4.2-6.2); RED CELL DISTRIBUTION WIDTH 15.2 % (9.0-15.0); WHITE BLOOD COUNT (AUTO) 4.6 K/uL (4.8-10.8)
[2023-10-18 09:02] LABS: HEMOGLOBIN A1C 7.7 % (<5.7)
[2023-10-18 09:08] LABS: TOTAL IRON BIND. CAPACITY 317 ug/dL (250-450)
[2023-10-18 09:11] LABS: ALANINE AMINOTRANSFERASE 21 U/L (12-78); ALBUMIN 2.5 g/dL (3.4-4.8); ANION GAP 7 (5-15); ASPARTATE AMINOTRANSFERASE 45 U/L (10-37); CALCIUM 8.8 mg/dL (8.4-11.0); CARBON DIOXIDE 29 mmol/L (23-29); CHLORIDE 98 mmol/L (98-107); CHOLESTEROL 102 mg/dL (<200); CREATININE 1.24 mg/dL (0.55-1.30); GLUCOSE 93 mg/dL (74-106); HDL CHOLESTEROL 61 mg/dL (>55); POTASSIUM 3.7 mmol/L (3.5-5.1); SODIUM SERUM 134 mmol/L (136-145); THYROID STIMULATING HORMONE 1.95 uIu/mL (0.34-4.82); TOTAL BILIRUBIN 1.3 mg/dL (0.0-1.0); TOTAL PROTEIN, SERUM 7.9 g/dL (6.4-8.3); TRIGLYCERIDES 39 mg/dL (30-150); UREA NITROGEN, BLOOD 31 mg/dL (8-21)
== END 2023-10-18 19:18 | disposition home or self-care (01) ==
LOC: SLB 07:58
PROVIDERS: ATTEND Internal Medicine
DX: E11.65 Type 2 diabetes mellitus with hyperglycemia (principal); D64.9 Anemia, unspecified; E03.9 Hypothyroidism, unspecified; E78.5 Hyperlipidemia, unspecified
CPT/HCPCS: 36415; 80053; 80061; 83037; 83540; 83550; 84443; 85025